=== PATIENT | female | born 1960 | race Caucasian/White ===

== ENCOUNTER 2021-08-23 15:05 | Emergency (ER) | payer BC ==
[2021-08-23 15:28] VITALS: RESP 20
[2021-08-23] MEDS ORDERED: IBUPROFEN 600 MG TAB PO STA (15:53)
[2021-08-23] MEDS ORDERED: ACETAMINOPHEN TAB 500 MG TAB PO STA (15:53)
[2021-08-23] MEDS ORDERED: DEXAMETHASONE SOD PHOSPHATE 10 MG/ML 1 ML VIAL IV STA (15:53)
[2021-08-23] MEDS ORDERED: SODIUM CHLORIDE 0.9% 1,000 ML IV ONE (16:06)
--- NOTE | 2021-08-23 16:11 | ED ---
General Adult HPI - General Chief complaint: Upper Respiratory Infection Stated complaint: covid+/weak/cough/vomiting Time Seen by Provider: 08/23/21 15:25 Source: patient, RN notes reviewed, old records reviewed Mode of arrival: ambulatory Limitations: no limitations - History of Present Illness Initial comments: This is a 61-year-old female presents emergency room from complaining of not feeling well feeling fatigued from COVID. Patient states she's had coded for over 2 weeks. Patient states she was diagnosed on August 15 but she had symptoms a week before that. Patient states she still cough and occasionally has a fever. Patient denies any loss of taste but does states she has loss of smell. Patient states she's only short of breath when she is coughing otherwise she is not short of breath per patient denies chest pain or palpitations. Patient's biggest complaint is being nauseated and unable to eat and being extremely fatigued. Patient denies any abdominal pain. Patient denies any back pain. Patient denies dysuria hematuria urinary frequency. - Related Data Home Medications Medication Instructions Recorded Confirmed Atorvastatin [Lipitor] 20 mg PO DAILY 08/23/21 08/23/21 Dapagliflozin Propanediol [Farxiga] 5 mg PO DAILY 08/23/21 08/23/21 Ergocalciferol (Vitamin D2) 1,250 mcg PO MO 08/23/21 08/23/21 [Drisdol (50,000 Iu)] Levothyroxine Sodium [Synthroid] 75 mcg PO DAILY 08/23/21 08/23/21 Ozempic 2mg/1.5ml 0.5 mg INJ WE 08/23/21 08/23/21 glipiZIDE [Glucotrol] 20 mg PO DAILY 08/23/21 08/23/21 metFORMIN HCL [Glucophage] 1,000 mg PO BID 08/23/21 08/23/21 Previous Rx's Medication Instructions Recorded Albuterol Inhaler [Ventolin Hfa 2 puff INHALATION RT-QID #18 gm 08/23/21 Inhaler] Azithromycin [Zithromax Tri-Arnaldo] 500 mg PO DAILY #3 tab 08/23/21 Dexamethasone [Decadron] 6 mg PO DAILY #7 tablet 08/23/21 Allergies Allergy/AdvReac Type Severity Reaction Status Date / Time diazepam [From Valium] AdvReac Vomiting Verified 08/23/21 15:28 Review of Systems ROS Statement: Those systems with pertinent positive or pertinent negative responses have been documented in the HPI. ROS Other: All systems not noted in ROS Statement are negative. Past Medical History Past Medical History: Diabetes Mellitus, Thyroid Disorder Additional Past Medical History / Comment(s): hypothyroid History of Any Multi-Drug Resistant Organisms: None Reported Past Surgical History: Appendectomy, Section, Tonsillectomy Past Psychological History: No Psychological Hx Reported Smoking Status: Never smoker Past Alcohol Use History: None Reported Past Drug Use History: None Reported General Exam - General Exam Comments Initial Comments: GENERAL: Patient is well-developed and well-nourished. Patient is nontoxic and well- hydrated and is in mild distress. Patient is oxygenating 93% on room air ENT: Neck is soft and supple. No significant lymphadenopathy is noted. Oropharynx is clear. Moist mucous membranes. Neck has full range of motion without eliciting any pain. EYES: The sclera were anicteric and conjunctiva were pink and moist. Extraocular movements were intact and pupils were equal round and reactive to light. Eyelids were unremarkable. PULMONARY: Unlabored respirations. Good breath sounds bilaterally. Slight crackles in both bases CARDIOVASCULAR: There is a regular rate and rhythm without any murmurs gallops or rubs. ABDOMEN: Soft and nontender with normal bowel sounds. SKIN: Skin is clear with no lesions or rashes and otherwise unremarkable. NEUROLOGIC: Patient is alert and oriented x3. Cranial nerves II through XII are grossly intact. Motor and sensory are also intact. Normal speech, volume and content. Symmetrical smile. MUSCULOSKELETAL: Normal extremities with adequate strength and full range of motion. LYMPHATICS: No significant lymphadenopathy is noted PSYCHIATRIC: Normal psychiatric evaluation. Limitations: no limitations Course Vital Signs 08/23/21 08/23/21 15:22 16:00 Temperature 99.8 F H 101.2 F H Pulse Rate 88 Respiratory 20 Rate Blood Pressure 123/67 O2 Sat by Pulse 93 L Oximetry Medical Decision Making - Medical Decision Making EKG shows normal sinus rhythm at 85 bpm SD interval 238 QRS is 80 QT interval 372 QTC is 442. Patient's EKG shows no ST segment elevation or depression Chest x-ray shows bilateral infiltrates consistent COVID. - Lab Data Result diagrams: 08/23/21 16:08 08/23/21 16:08 Lab Results 08/23/21 08/23/21 Range/Units 16:08 16:08 WBC 5.2 (3.8-10.6) k/uL RBC 4.82 (3.80-5.40) m/uL Hgb 14.2 (11.4-16.0) gm/dL Hct 43.2 (34.0-46.0) % MCV 89.6 (80.0-100.0) fL MCH 29.4 (25.0-35.0) pg MCHC 32.8 (31.0-37.0) g/dL RDW 13.6 (11.5-15.5) % Plt Count 125 L (150-450) k/uL MPV 9.0 Neutrophils % 78 % Lymphocytes % 16 % Monocytes % 4 % Eosinophils % 1 % Basophils % 1 % Neutrophils # 4.1 (1.3-7.7) k/uL Lymphocytes # 0.8 L (1.0-4.8) k/uL Monocytes # 0.2 (0-1.0) k/uL Eosinophils # 0.0 (0-0.7) k/uL Basophils # 0.0 (0-0.2) k/uL Sodium 138 (137-145) mmol/L Potassium 3.7 (3.5-5.1) mmol/L Chloride 105 (98-107) mmol/L Carbon Dioxide 22 (22-30) mmol/L Anion Gap 11 mmol/L BUN 20 H (7-17) mg/dL Creatinine 0.69 (0.52-1.04) mg/dL Est GFR (CKD-EPI)AfAm >90 (>60 ml/min/1.73 sqM) Est GFR (CKD-EPI)NonAf >90 (>60 ml/min/1.73 sqM) Glucose 207 H (74-99) mg/dL Calcium 9.2 (8.4-10.2) mg/dL Total Bilirubin 0.6 (0.2-1.3) mg/dL AST 28 (14-36) U/L ALT 18 (4-34) U/L Alkaline Phosphatase 62 (38-126) U/L Total Protein 6.9 (6.3-8.2) g/dL Albumin 3.6 (3.5-5.0) g/dL Disposition Clinical Impression: Pneumonia due to COVID-19 virus Disposition: HOME SELF-CARE Instructions (If sedation given, give patient instructions): Coronavirus Diseas e 2019 (COVID-19) Prescriptions: Dexamethasone [Decadron] 6 mg PO DAILY #7 tablet Albuterol Inhaler [Ventolin Hfa Inhaler] 2 puff INHALATION RT-QID #18 gm Azithromycin [Zithromax Tri-Arnaldo] 500 mg PO DAILY #3 tab Is patient prescribed a controlled substance at d/c from ED?: No Referrals: Nick Garcia MD [Primary Care Provider] - 1-2 days Time of Disposition: 17:04
[2021-08-23 16:12] LABS: Basophils % (A) 1 %; Eosinophils % (A) 1 %; HCT 43.2 % (34.0-46.0); HGB 14.2 gm/dL (11.4-16.0); Lymphocytes # (A) 0.8 k/uL (1.0-4.8); Lymphocytes % (A) 16 %; MCH 29.4 pg (25.0-35.0); MCHC 32.8 g/dL (31.0-37.0); MCV 89.6 fL (80.0-100.0); Monocytes # (A) 0.2 k/uL (0-1.0); Monocytes % (A) 4 %; Neutrophils # (A) 4.1 k/uL (1.3-7.7); Neutrophils % (A) 78 %; Platelet Count 125 k/uL (150-450); RBC 4.82 m/uL (3.80-5.40); RDW 13.6 % (11.5-15.5); WBC 5.2 k/uL (3.8-10.6)
[2021-08-23 16:22] LABS: ALT 18 U/L (4-34); AST 28 U/L (14-36); African American GFR (CKD) >90 (>60 ml/min/1.73 sqM); Albumin 3.6 g/dL (3.5-5.0); Alkaline Phosphatase 62 U/L (38-126); Anion Gap 11 mmol/L; Blood Urea Nitrogen 20 mg/dL (7-17); Calcium 9.2 mg/dL (8.4-10.2); Carbon Dioxide 22 mmol/L (22-30); Chloride 105 mmol/L (98-107); Glucose 207 mg/dL (74-99); Non-African American GFR(CKD) >90 (>60 ml/min/1.73 sqM); Potassium 3.7 mmol/L (3.5-5.1); Sodium 138 mmol/L (137-145); Total Bilirubin 0.6 mg/dL (0.2-1.3); Total Protein 6.9 g/dL (6.3-8.2)
--- NOTE | 2021-08-23 16:41 | XR ---
EXAMINATION TYPE: XR chest 2V DATE OF EXAM: 08/23/2021 COMPARISON: NONE HISTORY: Difficulty breathing TECHNIQUE: Frontal and lateral views of the chest are obtained. FINDINGS: Patchy peripheral areas of increased density present predominantly in the left lung. Cardi ac mediastinal silhouette within normal limits accounting for rotation. There is no evident pneumotho rax or pleural effusion. Thoracic spondylosis is noted. IMPRESSION: Correlate for pneumonia.
[2021-08-23] MEDS ORDERED: cefTRIAXone IN SWFI 1,000 MG/10 ML SYRINGE IVP STA (16:47)
[2021-08-23 16:53] VITALS: TEMP 101.2
[2021-08-23 16:58] VITALS: BP 109/75; PULSE 78
== END 2021-08-23 17:28 | disposition home or self-care (01) ==
LOC: EC 15:05
DX: U07.1 COVID-19 (principal); J12.82 Pneumonia due to coronavirus disease 2019; E11.9 Type 2 diabetes mellitus without complications; E03.9 Hypothyroidism, unspecified; Z79.84 Long term (current) use of oral hypoglycemic drugs; Z79.890 Hormone replacement therapy; Z79.51 Long term (current) use of inhaled steroids; Z79.899 Other long term (current) drug therapy
CPT/HCPCS: 99285 ×2; 96374 ×2; 96375 ×2; 96361 ×2; 36415; 93005; 80053; 85025; 71046; J1100; J0696

== ENCOUNTER 2024-01-15 23:14 | Emergency (ER) | payer OTHER, MEDICARE ==
[2024-01-15 23:38] VITALS: BP 133/78; PULSE 77; RESP 18; TEMP 98.3
--- NOTE | 2024-01-16 00:10 | XR ---
EXAMINATION TYPE: XR knee complete LT DATE OF EXAM: 01/16/2024 CLINICAL HISTORY: Falling injury with pain TECHNIQUE: Three views of the left knee are obtained. COMPARISON: None. FINDINGS: There is no acute fracture/dislocation evident in left knee. Mild to moderate tricompartme nt joint space loss and mild spurring. Meniscal calcification laterally is seen suggesting underlying chondrocalcinosis. Overlying blanket or clothing material is present. IMPRESSION: There is no acute fracture or dislocation in the left knee.
--- NOTE | 2024-01-16 00:46 | ED ---
General Adult HPI - General Chief complaint: Extremity Injury, Lower Stated complaint: [facility] injury, fall, knee injury Time Seen by Provider: 01/15/24 23:48 Source: patient Mode of arrival: wheelchair Limitations: no limitations - History of Present Illness Initial comments: 63-year-old female presenting to the ED with a chief complaint of right knee pain. Patient states that she excellently stepped in a puddle earlier today causing her to slip in the process states that she twisted her left knee and landed onto her buttocks/back. Denies any injury to her buttocks/back at this time however reports some left knee pain. Patient not on blood thinners. Denies head injury. No other injuries at this time. No other complaints. - Related Data Home Medications Medication Instructions Recorded Confirmed Atorvastatin [Lipitor] 20 mg PO DAILY 08/23/21 08/23/21 Dapagliflozin Propanediol [Farxiga] 5 mg PO DAILY 08/23/21 08/23/21 Ergocalciferol (Vitamin D2) 1,250 mcg PO MO 08/23/21 08/23/21 [Drisdol (50,000 Iu)] Levothyroxine Sodium [Synthroid] 75 mcg PO DAILY 08/23/21 08/23/21 Ozempic 2mg/1.5ml 0.5 mg INJ WE 08/23/21 08/23/21 glipiZIDE [Glucotrol] 20 mg PO DAILY 08/23/21 08/23/21 metFORMIN HCL [Glucophage] 1,000 mg PO BID 08/23/21 08/23/21 Previous Rx's Medication Instructions Recorded Albuterol Inhaler [Ventolin Hfa 2 puff INHALATION RT-QID #18 gm 08/23/21 Inhaler] Azithromycin [Zithromax Tri-Arnaldo] 500 mg PO DAILY #3 tab 08/23/21 dexAMETHasone [Decadron] 6 mg PO DAILY #7 tablet 08/23/21 Allergies Allergy/AdvReac Type Severity Reaction Status Date / Time diazepam [From Valium] AdvReac Vomiting Verified 01/15/24 23:24 Review of Systems ROS Statement: Those systems with pertinent positive or pertinent negative responses have been documented in the HPI. ROS Other: All systems not noted in ROS Statement are negative. Past Medical History Past Medical History: Diabetes Mellitus, Thyroid Disorder Additional Past Medical History / Comment(s): hypothyroid History of Any Multi-Drug Resistant Organisms: None Reported Past Surgical History: Appendectomy, Section, Tonsillectomy Past Psychological History: No Psychological Hx Reported Smoking Status: Never smoker Past Alcohol Use History: None Reported Past Drug Use History: None Reported General Exam Limitations: no limitations General appearance: alert, in no apparent distress Eye exam: Present: normal appearance Neck exam: Present: normal inspection Respiratory exam: Present: normal lung sounds bilaterally Cardiovascular Exam: Present: regular rate, normal rhythm GI/Abdominal exam: Present: soft Extremities exam: Present: other (Full passive range of motion of the left knee. Strength and sensation distal intact. DP/PT pulses palpable.) Back exam: Present: other (No midline spinal tenderness to palpation.) Neurological exam: Present: alert, oriented X3 Skin exam: Present: warm, dry Course Vital Signs 01/15/24 23:22 Temperature 98.3 F Pulse Rate 77 Respiratory 18 Rate Blood Pressure 133/78 O2 Sat by Pulse 97 Oximetry Medical Decision Making - Medical Decision Making Was pt. sent in by a medical professional or institution ([facility], IN[employer], urgent care, hospital, or group home...) When possible be specific @ -No Did you speak to anyone other than the patient for history (EMS, parent, family, police, friend...)? What history was obtained from this source @ -No Did you review nursing and triage notes (agree or disagree)? Why? @ -I reviewed and agree with nursing and triage notes Were old charts reviewed (outside hosp., previous admission, EMS record, old EKG, old radiological studies, urgent care reports/EKG's, group home records)? Report findings @ -No old charts were reviewed Differential Diagnosis (chest pain, altered mental status, abdominal pain women, abdominal pain men, vaginal bleeding, weakness, fever, dyspnea, syncope, headache, dizziness, GI bleed, back pain, seizure, CVA, palpatations, mental health, musculoskeletal)? @ -Differential Musculoskeletal Muscular strain, contusion, ligament sprain, fracture, arthritis, septic arthritis, bursitis, cellulitis, muscle spasm, nerve compression, DVT, arterial occlusion, herpes zoster, electrolyte abnormality, tumor.... This is not meant to be in all inclusive list EKG interpreted by me (3pts min.). @ -As above X-rays interpreted by me (1pt min.). @ -X-ray of the knee interpreted me reveals no acute findings. CT interpreted by me (1pt min.). @ -None done U/S interpreted by me (1pt. min.). @ -None done What testing was considered but not performed or refused? (CT, X-rays, U/S, labs)? Why? @ -None What meds were considered but not given or refused? Why? @ -None Did you discuss the management of the patient with other professionals (professionals i.e. , PA, INDEPENDENT [employer]IGHT AGENT, lab, RT, psych nurse, social media content manager, oil burner, teacher, commissioned police officer, casework specialist)? Give summary @ -No Was smoking cessation discussed for >3mins.? @ -No Was critical care preformed (if so, how long)? @ -No Were there social determinants of health that impacted care today? How? (Homelessness, low income, unemployed, alcoholism, drug addiction, transportation, low edu. Level, literacy, decrease access to med. care, care home, rehab)? @ -No Was there de-escalation of care discussed even if they declined (Discuss DNR or withdrawal of care, Hospice)? DNR status @ -No What co-morbidities impacted this encounter? (DM, HTN, Smoking, COPD, CAD, Cancer, CVA, ARF, Chemo, Hep., AIDS, mental health diagnosis, sleep apnea, morbid obesity)? @ -None Was patient admitted / discharged? Hospital course, mention meds given and route, prescriptions, significant lab abnormalities, going to OR and other pertinent info. @ -Discharge 63-year-old female presenting to the ED status post mechanical fall complaining of some left knee pain. Denies any other injuries at this time. Not on thinners. Imaging of the left knee revealed no evidence of fracture or other acute finding. Patient discharged home in stable condition and advised to follow-up with [facility]. Discussed return precautions with patient who verbalized agreement. Undiagnosed new problem with uncertain prognosis? @ -No Drug Therapy requiring intensive monitoring for toxicity (Heparin, Nitro, Insulin, Cardizem)? @ -No Were any procedures done? @ -No Diagnosis/symptom? @ -Status post mechanical fall, left knee pain Acute, or Chronic, or Acute on Chronic? @ -Acute Uncomplicated (without systemic symptoms) or Complicated (systemic symptoms)? @ -Uncomplicated Side effects of treatment? @ -No Exacerbation, Progression, or Severe Exacerbation? @ -No Poses a threat to life or bodily function? How? (Chest pain, [place], [place], pneumonia, PE, COPD, DKA, ARF, appy, cholecystitis, CVA, Diverticulitis, Homicidal, Suicidal, threat to staff... and all critical care pts) @ -No Disposition Clinical Impression: Left knee pain Disposition: HOME SELF-CARE Condition: Good Instructions (If sedation given, give patient instructions): Knee Sprain (ED) Additional Instructions: Please return to the Emergency Department if symptoms worsen or any other concerns. Please follow-up with [facility]. Is patient prescribed a controlled substance at d/c from ED?: No Referrals: Nick Garcia MD [Primary Care Provider] - 1-2 days Time of Disposition: 00:49
[2024-01-16] MEDS: ACETAMINOPHEN TAB 500 MG TAB PO STA (00:47)
== END 2024-01-16 01:02 | disposition home or self-care (01) ==
LOC: EC 23:14
DX: M25.562 Pain in left knee (principal); E11.9 Type 2 diabetes mellitus without complications; E03.9 Hypothyroidism, unspecified; Z79.890 Hormone replacement therapy; Z79.84 Long term (current) use of oral hypoglycemic drugs; Z88.8 Allergy status to other drugs, medicaments and biological substances; X50.1XXA Overexertion from prolonged static or awkward postures, initial encounter
CPT/HCPCS: 99283

== ENCOUNTER 2025-01-05 20:06 | Observation (INO) | payer MEDICARE, OTHER ==
[2025-01-05 20:15] LABS: Glucose,Whole Blood 115 mg/dL (70-110)
[2025-01-05 20:48] LABS: Basophils # (A) 0.1 k/uL (0-0.2); Basophils % (A) 0 %; Eosinophils # (A) 0.2 k/uL (0-0.7); Eosinophils % (A) 2 %; HCT 43.7 % (34.0-46.0); HGB 13.6 gm/dL (11.4-16.0); Hypochromasia Slight; Lymphocytes # (A) 3.3 k/uL (1.0-4.8); Lymphocytes % (A) 28 %; MCH 28.5 pg (25.0-35.0); MCV 91.8 fL (80.0-100.0); Mean Platelet Volume 8.7; Monocytes # (A) 0.5 k/uL (0-1.0); Monocytes % (A) 5 %; Neutrophils # (A) 7.7 k/uL (1.3-7.7); Neutrophils % (A) 65 %; Platelet Count 263 k/uL (150-450); RBC 4.76 m/uL (3.80-5.40); RDW 13.3 % (11.5-15.5)
[2025-01-05 20:58] LABS: ALT 18 U/L (4-34); AST 20 U/L (14-36); African American GFR (CKD) 86 (>60 ml/min/1.73 sqM); Albumin 4.2 g/dL (3.5-5.0); Alkaline Phosphatase 82 U/L (38-126); Anion Gap 10 mmol/L; Blood Urea Nitrogen 25 mg/dL (7-17); Calcium 10.2 mg/dL (8.4-10.2); Carbon Dioxide 25 mmol/L (22-30); Chloride 106 mmol/L (98-107); Glucose 116 mg/dL (74-99); Non-African American GFR(CKD) 75 (>60 ml/min/1.73 sqM); Sodium 141 mmol/L (137-145); Total Bilirubin 0.8 mg/dL (0.2-1.3); Total Protein 7.1 g/dL (6.3-8.2)
[2025-01-05 21:13] LABS: INR 0.9 (<1.2); Prothrombin Time 10.3 sec (10.0-12.5)
--- NOTE | 2025-01-05 21:37 | XR ---
EXAMINATION TYPE: XR chest 2V DATE OF EXAM: 01/05/2025 9:32 PM COMPARISON: Chest radiographs from 08/23/2021 CLINICAL INDICATION: Female, 64 years old with history of altered mental status; [facility] TECHNIQUE: XR chest 2V Frontal and lateral views of the chest. FINDINGS: Lungs/Pleura: There is no evidence of pleural effusion, focal consolidation, or pneumothorax. Pulmonary vascularity: Unremarkable. Heart/mediastinum: Cardiomediastinal silhouette is unremarkable. Musculoskeletal: Multiple level degenerative disc disease changes seen throughout the spine. IMPRESSION: No acute cardiopulmonary disease/process. [facility], , 01/05/2025 9:34 PM
[2025-01-05 22:06] LABS: Partial Thromboplastin Time 21.7 sec (22.0-30.0)
--- NOTE | 2025-01-05 22:28 | CT ---
EXAMINATION TYPE: CT brain wo con DATE OF EXAM: 01/05/2025 10:15 PM COMPARISON: None. CLINICAL INDICATION: Female, 64 years old with history of ams, slurred speech, forgetfulness, increas ed in confusion, and dizziness. 1600 today TECHNIQUE: Brain: Axial CT images of the brain were obtained with coronal and sagittal reformats created and rev iewed. Contrast used: None. Oral contrast used: None. CT DLP: 1648.5 mGycm, Automated exposure control for dose reduction was used. FINDINGS: Brain: Extra-axial spaces: No abnormal extra-axial fluid collections. Ventricular system: Within normal limits Cerebral parenchyma: No acute intraparenchymal hemorrhage or mass effect. The bunch-white junction is well differentiated. Cerebellum: Unremarkable. Mass effect: No evidence of midline shift. Intracranial vasculature: Atherosclerotic calcifications of the intracranial vessels. Soft tissues: Normal. Calvarium/osseous structures: No depressed skull fracture. Paranasal sinuses and mastoid air cells: Mild scattered paranasal sinus disease. Visualized orbits: Orbital contents are intact. IMPRESSION: No acute intracranial process. [facility], , 01/05/2025 10:26 PM
--- NOTE | 2025-01-05 22:32 | CT ---
EXAMINATION TYPE: CT angio head neck DATE OF EXAM: 01/05/2025 10:27 PM COMPARISON: CT same day. CLINICAL INDICATION: Female, 64 years old with history of ams; PHH, slurred speech, forgetfulness, in creased in confusion, and dizziness. 1600 today TECHNIQUE: Axially acquired helical CT angiogram of the head and neck was obtained with contrast. Axi al images are supplemented with 3D reconstructions and MIP images which were post-processed at an in dependent workstation. NASCET criteria used. Contrast used:65ML mL of Isovue 370 with IV Contrast, Oral contrast used: None. CT DLP: 1648.5 mGycm, Automated exposure control for dose reduction was used. FINDINGS: CTA HEAD: No evidence of acute intracranial hemorrhage, mass effect, or midline shift. The ventricles, sulci, a nd cisterns are unremarkable. Vertebral arteries: The vertebral arteries are patent. Vertebral artery dominance: Right dominant diminutive left vertebral artery intracranial portion. Basilar artery: The basilar artery is intact. The basilar artery bifurcation is normal. Internal Carotid arteries: The cervical, petrous, cavernous and supraclinoid segments are normal. ANIYAH: Patent with no evidence of aneurysm. ACOM: Present without evidence of aneurysm. MCA: Patent with no evidence of aneurysm. BUTTON GRADER: Patent with no evidence of aneurysm. PCOM: Hypoplastic bilaterally. Dural sinuses: Patent. CTA NECK: Right Carotid System: The common carotid artery and external carotid artery are patent. The carotid bifurcation demonstrate s no evidence of hemodynamically significant stenosis. The remaining portions of the internal carotid artery demonstrate normal size without significant narrowing. Left Carotid System: The common carotid artery and external carotid artery are patent. The carotid bifurcation demonstrate s no evidence of hemodynamically significant stenosis. The remaining portions of the internal carotid artery demonstrate normal size without significant narrowing. Vertebral arteries are patent without evidence hemodynamically significant stenosis. There is a 4-vessel aortic arch. The origins of the great vessels are patent. No evidence of hemodyna mically significant stenosis. Upper thorax: IMPRESSION: No evidence of dissection of the cervical internal carotid arteries or vertebral arteries. No any evidence of significant stenosis at the carotid bifurcations. No evidence of intracranial high-grade stenosis or intracranial aneurysm. Diminutive intracranial portion of the left vertebral artery. [facility], , 01/05/2025 10:30 PM
--- NOTE | 2025-01-05 22:39 | ED ---
Neuro HPI - General Chief Complaint: Neuro Symptoms/Deficit Stated Complaint: AMS,Weakness Time Seen by Provider: 01/05/25 21:47 Source: family, RN notes reviewed, old records reviewed Mode of arrival: wheelchair Limitations: altered mental status - History of Present Illness Is the patient presenting with stroke symptoms?: No -: hour(s) Initial Comments: This is a 64 female who presents to the emergency department after altered mental status prior to arrival. Patient was at work a job that she has been doing for years and was unable to remember where things go how to do her job she became increasing confused and stressed, patient then was assessed by nurses at work and had low blood pressure, elevated heart rate and remain confused. She is a diabetic checked her normal blood sugar. Patient states she feels still feels unwell here in the ER is without headache no headache chest pain shortness breath abdominal pain no recent nausea vomiting or diarrhea no recent fevers. No recent change in medications although she does get injections for about 3 months now for arthritis Slurred speech was noted as well as confusion Location: speech, dysarthria Place: work Severity: mild Quality: weak Improves With: time Worsens With: none Context: sudden onset Associated Symptoms: confusion Treatments Prior to Arrival: none - Related Data Home Medications: Home Medications Medication Instructions Recorded Confirmed Levothyroxine Sodium [Synthroid] 75 mcg PO DAILY 08/23/21 01/06/25 metFORMIN HCL [Glucophage] 1,000 mg PO BID 08/23/21 01/06/25 Atorvastatin [Lipitor] 80 mg PO DAILY 01/06/25 01/06/25 Ezetimibe [Zetia] 10 mg PO DAILY 01/06/25 01/06/25 Naproxen [Naprosyn] 500 mg PO BID PRN 01/06/25 01/06/25 glyBURIDE [Diabeta] 20 mg PO DAILY 01/06/25 01/06/25 Previous Rx's Medication Instructions Recorded Aspirin 81 mg PO DAILY #30 tab 01/08/25 Allergies/Adverse Reactions: Allergies Allergy/AdvReac Type Severity Reaction Status Date / Time diazepam [From Valium] AdvReac Vomiting Verified 01/06/25 10:09 Review of Systems ROS Statement: Those systems with pertinent positive or pertinent negative responses have been documented in the HPI. ROS Other: All systems not noted in ROS Statement are negative. General Exam Limitations: altered mental status General appearance: alert, in no apparent distress, anxious Head exam: Present: atraumatic, normocephalic, normal inspection Eye exam: Present: normal appearance, PERRL, EOMI. Absent: scleral icterus, conjunctival injection, periorbital swelling ENT exam: Present: normal exam, mucous membranes moist Neck exam: Present: normal inspection. Absent: tenderness, meningismus, lymphadenopathy Respiratory exam: Present: normal lung sounds bilaterally. Absent: respiratory distress, wheezes, rales, rhonchi, stridor Cardiovascular Exam: Present: regular rate, normal rhythm, normal heart sounds. Absent: systolic murmur, diastolic murmur, rubs, gallop, clicks GI/Abdominal exam: Present: soft, normal bowel sounds. Absent: distended, tenderness, guarding, rebound, rigid Extremities exam: Present: normal inspection, full ROM, normal capillary refill. Absent: tenderness, pedal edema, joint swelling, calf tenderness Back exam: Present: normal inspection Neurological exam: Present: alert, oriented X3, CN II-XII intact Psychiatric exam: Present: normal affect, normal mood Skin exam: Present: warm, dry, intact, normal color. Absent: rash Stroke MDM - Lab Data Result diagrams: 01/06/25 05:41 01/06/25 05:41 Lab Results 01/05/25 01/05/25 01/05/25 Range/Units 20:14 20:33 20:33 WBC 12.0 H (3.8-10.6) k/uL RBC 4.76 (3.80-5.40) m/uL Hgb 13.6 (11.4-16.0) gm/dL Hct 43.7 (34.0-46.0) % MCV 91.8 (80.0-100.0) fL MCH 28.5 (25.0-35.0) pg MCHC 31.0 (31.0-37.0) g/dL RDW 13.3 (11.5-15.5) % Plt Count 263 (150-450) k/uL MPV 8.7 Neutrophils % 65 % Lymphocytes % 28 % Monocytes % 5 % Eosinophils % 2 % Basophils % 0 % Neutrophils # 7.7 (1.3-7.7) k/uL Lymphocytes # 3.3 (1.0-4.8) k/uL Monocytes # 0.5 (0-1.0) k/uL Eosinophils # 0.2 (0-0.7) k/uL Basophils # 0.1 (0-0.2) k/uL Hypochromasia Slight PT 10.3 (10.0-12.5) sec INR 0.9 (<1.2) APTT 21.7 L (22.0-30.0) sec Sodium (137-145) mmol/L Potassium (3.5-5.1) mmol/L Chloride (98-107) mmol/L Carbon Dioxide (22-30) mmol/L Anion Gap mmol/L BUN (7-17) mg/dL Creatinine (0.52-1.04) mg/dL Est GFR (CKD-EPI)AfAm (>60 ml/min/1.73 sqM) Est GFR (CKD-EPI)NonAf (>60 ml/min/1.73 sqM) Glucose (74-99) mg/dL POC Glucose (mg/dL) 115 H (70-110) mg/dL POC Glu Banana Handler ID Jayla Rosio Calcium (8.4-10.2) mg/dL Total Bilirubin (0.2-1.3) mg/dL AST (14-36) U/L ALT (4-34) U/L Alkaline Phosphatase (38-126) U/L Troponin I (0.000-0.034) ng/mL Total Protein (6.3-8.2) g/dL Albumin (3.5-5.0) g/dL Urine Color Urine Appearance (Clear) Urine pH (5.0-8.0) Ur Specific [place] (1.001-1.035) Urine Protein (Negative) Urine Glucose (UA) (Negative) Urine Ketones (Negative) Urine Blood (Negative) Urine Nitrite (Negative) Urine Bilirubin (Negative) Urine Urobilinogen (<2.0) mg/dL Ur Leukocyte Esterase (Negative) Urine RBC (0-5) /hpf Urine WBC (0-5) /hpf Ur Squamous Epith Cells (0-4) /hpf Urine Bacteria (None) /hpf Hyaline Casts (0-2) /lpf Urine Mucus (None) /hpf 01/05/25 01/05/25 01/05/25 Range/Units 20:33 20:33 22:51 WBC (3.8-10.6) k/uL RBC (3.80-5.40) m/uL Hgb (11.4-16.0) gm/dL Hct (34.0-46.0) % MCV (80.0-100.0) fL MCH (25.0-35.0) pg MCHC (31.0-37.0) g/dL RDW (11.5-15.5) % Plt Count (150-450) k/uL MPV Neutrophils % % Lymphocytes % % Monocytes % % Eosinophils % % Basophils % % Neutrophils # (1.3-7.7) k/uL Lymphocytes # (1.0-4.8) k/uL Monocytes # (0-1.0) k/uL Eosinophils # (0-0.7) k/uL Basophils # (0-0.2) k/uL Hypochromasia PT (10.0-12.5) sec INR (<1.2) APTT (22.0-30.0) sec Sodium 141 (137-145) mmol/L Potassium 4.0 (3.5-5.1) mmol/L Chloride 106 (98-107) mmol/L Carbon Dioxide 25 (22-30) mmol/L Anion Gap 10 mmol/L BUN 25 H (7-17) mg/dL Creatinine 0.82 (0.52-1.04) mg/dL Est GFR (CKD-EPI)AfAm 86 (>60 ml/min/1.73 sqM) Est GFR (CKD-EPI)NonAf 75 (>60 ml/min/1.73 sqM) Glucose 116 H (74-99) mg/dL POC Glucose (mg/dL) (70-110) mg/dL POC Glu Banana Handler ID Calcium 10.2 (8.4-10.2) mg/dL Total Bilirubin 0.8 (0.2-1.3) mg/dL AST 20 (14-36) U/L ALT 18 (4-34) U/L Alkaline Phosphatase 82 (38-126) U/L Troponin I <0.012 (0.000-0.034) ng/mL Total Protein 7.1 (6.3-8.2) g/dL Albumin 4.2 (3.5-5.0) g/dL Urine Color Yellow Urine Appearance Clear (Clear) Urine pH 5.5 (5.0-8.0) Ur Specific [place] 1.048 H (1.001-1.035) Urine Protein Trace H (Negative) Urine Glucose (UA) Negative (Negative) Urine Ketones Negative (Negative) Urine Blood Negative (Negative) Urine Nitrite Negative (Negative) Urine Bilirubin Negative (Negative) Urine Urobilinogen <2.0 (<2.0) mg/dL Ur Leukocyte Esterase Moderate H (Negative) Urine RBC 1 (0-5) /hpf Urine WBC 6 H (0-5) /hpf Ur Squamous Epith Cells 1 (0-4) /hpf Urine Bacteria Rare H (None) /hpf Hyaline Casts 53 H (0-2) /lpf Urine Mucus Rare H (None) /hpf - NIH Stroke Scale 1a. Level of Consciousness: (0) alert 1b. LOC Questions: (0) answers correctly 1c. LOC Commands: (0) performs tasks correctly 2. Best Gaze: (0) normal 3. Visual: (0) no visual loss 4. Facial Palsy: (0) normal symmetrical movement 5a. Motor Arm Left: (0) no drift 5b. Motor Arm Right: (0) no drift 6a. Motor Leg Left: (0) no drift 6b. Motor Leg Right: (0) no drift 7. Limb Ataxia: (0) absent 8. Sensory: (0) normal 9. Best Language: (0) no aphasia 10. Dysarthria: (0) normal 11. Extinction/Inattention: (0) no abnormality - Thrombolytic Inclusion/Exclusion Thrombolytic Inclusion Criteria: Symptom Onset < 4.5 h - Medical Decision Making 64 female with forgetfulness earlier today patient could not figure out how to do her job which is something that she has done for years. She became increasingly confused at work and they checked her blood pressure which was low her heart rate which was high, blood sugar was normal. It and sent her to the emergency department, here she has normal testing but still feels off and will admit for neurology observation - Radiology Data Radiology results: report reviewed (Chest x-ray CT brain CTA head neck negative for acute disease), image reviewed - EKG Data -: EKG Interpreted by Me (EKG is sinus 71 WA 143 QRS 89 QTc 409) Past Medical History Past Medical History: Diabetes Mellitus, Hypertension, Thyroid Disorder Additional Past Medical History / Comment(s): hypothyroid History of Any Multi-Drug Resistant Organisms: None Reported Past Surgical History: Appendectomy, Section, Tonsillectomy Past Psychological History: No Psychological Hx Reported Smoking Status: Never smoker Past Alcohol Use History: None Reported Past Drug Use History: None Reported Course Vital Signs 01/05/25 01/06/25 20:07 01:29 Temperature 97.8 F Pulse Rate 78 78 Respiratory 18 18 Rate Blood Pressure 151/75 135/78 O2 Sat by Pulse 98 95 Oximetry - Reevaluation(s) Reevaluation #1: 01/05/25 23:24 Records reviewed Reevaluation #2: 01/05/25 23:24 Patient has no focal neurological deficits on examination here in the ER Patient has no significant amnesia currently Patient is alert and oriented Reevaluation #3: 01/05/25 23:24 Patient informed of results and questions answered Patient does not feel comfortable with discharge Reevaluation #4: Was pt. sent in by a medical professional or institution (, PA, RADIATION TECHNICIAN, urgent care, hospital, or skilled nursing...) When possible be specific @ -no Did you speak to anyone other than the patient for history (EMS, parent, family, police, friend...)? What history was obtained from this source @ -no Did you review nursing and triage notes (agree or disagree)? Why? @ -agree Are old charts reviewed (outside hosp., previous admission, EMS record, old EKG, old radiological studies, urgent care reports/EKG's, skilled nursing records)? Report findings @ -yes Differential Diagnosis (chest pain, altered mental status, abdominal pain women, abdominal pain men, vaginal bleeding, weakness, fever, dyspnea, syncope, headache, dizziness, GI bleed, back pain, seizure, CVA, palpatations, mental health, musculoskeletal)? @ -prior EKG interpreted by me (3pts min.). @ -yes X-rays interpreted by me (1pt min.). @ -yes negative for acute disease CT interpreted by me (1pt min.). @ -yes negative for acute disease U/S interpreted by me (1pt. min.). @ -no What testing was considered but not performed or refused? (CT, X-rays, U/S, labs)? Why? @ -none What meds were considered but not given or refused? Why? @ -none Did you discuss the management of the patient with other professionals (professionals i.e. DrTiffanie, PA, RADIATION TECHNICIAN, lab, RT, psych nurse, home health care social worker, early childhood education coordinator, teacher, public affairs officer, family independence case manager)? Give summary @ -no Was smoking cessation discussed for >3mins.? @ -no Was critical care preformed (if so, how long)? @ -no Were there social determinants of health that impacted care today? How? (Homelessness, low income, unemployed, alcoholism, drug addiction, transportation, low edu. Level, literacy, decrease access to med. care, half-way, rehab)? @ -none Was there de-escalation of care discussed even if they declined (Discuss DNR or withdrawal of care, Hospice)? DNR status @ -no What co-morbidities impacted this encounter? (DM, HTN, Smoking, COPD, CAD, Cancer, CVA, ARF, Chemo, Hep., AIDS, mental health diagnosis, sleep apnea, morbid obesity)? @ -none Was patient admitted / discharged? Hospital course, mention meds given and route, prescriptions, significant lab abnormalities, going to OR and other pertinent info. @ - 64 female with forgetfulness earlier today patient could not figure out how to do her job which is something that she has done for years. She became in creasingly confused at work and they checked her blood pressure which was low her heart rate which was high, blood sugar was normal. It and sent her to the emergency department, here she has normal testing but still feels off and will admit for neurology observation Admitted acute confusion and hypertension Undiagnosed new problem with uncertain prognosis? @ -no Drug Therapy requiring intensive monitoring for toxicity (Heparin, Nitro, Insulin, Cardizem)? @ -no Were any procedures done? @ -no Diagnosis/symptom? @ -Acute confusion amnesia and hypertension Acute, or Chronic, or Acute on Chronic? @ -Acute Uncomplicated (without systemic symptoms) or Complicated (systemic symptoms)? @ -Complicated Side effects of treatment? @ -no Exacerbation, Progression, or Severe Exacerbation? @ -exacerbation Poses a threat to life or bodily function? How? (Chest pain, [place], IA, pneumonia, PE, COPD, DKA, ARF, appy, cholecystitis, CVA, Diverticulitis, Homicidal, Suicidal, threat to staff... and all critical care pts) @ -no Reevaluation #5: Differential Altered Mental Status: Hypoglycemia, DKA, hypercapnia, ETOH, overdose, CO poisoning, trauma, myxedema coma, HTN encephalopathy, infection, encephalitis, psychosis, intercranial hemorrhage, hepatic encephalopathy, meningitis, CVA, this is not meant to be an all-inclusive list - Consultations Consultation #1: Spoke with [facility] who agrees to admit this patient Disposition Clinical Impression: AMS (altered mental status), Amnesia Disposition: ADMITTED IP TO THIS [facility] Condition: Good Is patient prescribed a controlled substance at d/c from ED?: No Time of Disposition: 23:20
[2025-01-05 23:17] LABS: Appearance,Urine Clear (Clear); Bacteria,Urine Rare /hpf; Bilirubin,Urine Negative (Negative); Blood,Urine Negative (Negative); Color,Urine Yellow; Glucose,Urine (UA) Negative (Negative); Hyaline Casts,Urine 53 /lpf (0-2); Ketones,Urine Negative (Negative); Leukocyte Esterase,Urine Moderate (Negative); Mucus,Urine Rare /hpf; Nitrite,Urine Negative (Negative); PH, Urine 5.5 (5.0-8.0); Protein,Urine Trace (Negative); RBC,Urine 1 /hpf (0-5); Squamous Epithelial Cell,Urine 1 /hpf (0-4); Urobilinogen,Urine <2.0 mg/dL (<2.0); WBC,Urine 6 /hpf (0-5)
[2025-01-05] MEDS ORDERED: ONDANSETRON 4 MG/2 ML VIAL IVP PRN (23:22)
[2025-01-05] MEDS ORDERED: NALOXONE 0.4 MG/ML 1 ML VIAL IV PRN (23:22)
[2025-01-05 23:37] LABS: Specific Gravity,Urine 1.048 (1.001-1.035)
[2025-01-05] MEDS: SODIUM CHLORIDE 0.9% 1,000 ML IV SCH (23:38)
[2025-01-05] MEDS: SODIUM CHLORIDE 0.9% 1,000 ML IV STA ×2 (23:38)
[2025-01-05] MEDS: ASPIRIN 81 MG PO STA (23:45)
[2025-01-06 00:51] LABS: Influenza A Not Detected (Not Detectd); Influenza B Not Detected (Not Detectd); RSV Not Detected (Not Detectd)
[2025-01-06 05:52] LABS: Glucose,Whole Blood 95 mg/dL (70-110)
[2025-01-06 06:06] LABS: Basophils % (A) 1 %; Eosinophils # (A) 0.2 k/uL (0-0.7); Eosinophils % (A) 2 %; HCT 38.7 % (34.0-46.0); Hypochromasia Slight; Lymphocytes # (A) 3.4 k/uL (1.0-4.8); Lymphocytes % (A) 37 %; MCH 28.9 pg (25.0-35.0); MCHC 31.1 g/dL (31.0-37.0); MCV 92.9 fL (80.0-100.0); Mean Platelet Volume 8.7; Monocytes # (A) 0.4 k/uL (0-1.0); Monocytes % (A) 4 %; Neutrophils # (A) 5.1 k/uL (1.3-7.7); Neutrophils % (A) 55 %; Platelet Count 196 k/uL (150-450); RBC 4.16 m/uL (3.80-5.40); RDW 13.4 % (11.5-15.5); WBC 9.3 k/uL (3.8-10.6)
[2025-01-06 06:16] LABS: ALT 14 U/L (4-34); AST 17 U/L (14-36); African American GFR (CKD) >90 (>60 ml/min/1.73 sqM); Albumin 3.1 g/dL (3.5-5.0); Alkaline Phosphatase 65 U/L (38-126); Anion Gap 4 mmol/L; Blood Urea Nitrogen 18 mg/dL (7-17); Carbon Dioxide 25 mmol/L (22-30); Chloride 110 mmol/L (98-107); Glucose 98 mg/dL (74-99); Magnesium 1.3 mg/dL (1.6-2.3); Non-African American GFR(CKD) >90 (>60 ml/min/1.73 sqM); Phosphorus 4.4 mg/dL (2.5-4.5); Potassium 3.8 mmol/L (3.5-5.1); Sodium 139 mmol/L (137-145); Total Bilirubin 0.6 mg/dL (0.2-1.3); Total Protein 5.7 g/dL (6.3-8.2)
[2025-01-06] MEDS: ASPIRIN 325 MG TAB PO SCH (09:18)
[2025-01-06] MEDS ORDERED: DEXTROSE 50% SYRINGE 50 ML IVP PRN ×2 (13:16)
[2025-01-06 13:37] LABS: Glucose,Whole Blood 172 mg/dL (70-110)
--- NOTE | 2025-01-06 14:05 | P.HPIM ---
History of Present Illness 64-year-old female came in with complaints of transient episode of memory loss. Patient was confused at the time her confusion completely resolved although workup here is negative patient had a mild leukocytosis which resolved at this time but no evidence of sepsis urine is slightly abnormal but not consistent with urinary tract infection chest x-ray is negative patient is not septic at this time. There are no significant electrolyte abnormalities except for low magnesium which will be replaced. Patient was told by the nurse yesterday that she does have weakness in the left arm which is not evident at this time patient does have some neck pain and neuropathy and weakness in bilateral upper extremities in general because of cervical spondylosis/myelopathy. REVIEW OF SYSTEMS: All other systems are negative except those mentioned in the HPI PHYSICAL EXAMINATION: GENERAL: The patient is alert and oriented x3, not in any acute distress. Well developed, well nourished. HEENT: Pupils are round and equally reacting to light. EOMI. No scleral icterus. No conjunctival pallor. Normocephalic, atraumatic. No pharyngeal erythema. No thyromegaly. CARDIOVASCULAR: S1 and S2 present. No murmurs, rubs, or gallops. PULMONARY: Chest is clear to auscultation, no wheezing or crackles. ABDOMEN: Soft, nontender, nondistended, normoactive bowel sounds. No palpable organomegaly. MUSCULOSKELETAL: No joint swelling or deformity. EXTREMITIES: No cyanosis, clubbing, or pedal edema. NEUROLOGICAL: Gross neurological examination did not reveal any focal deficits except for-weakness in bilateral upper extremities SKIN: No rashes. Assessment and plan -Possible transient global amnesia only will need workup for TIA, neurology was consulted CT of the head did not show any acute stroke -Bilateral upper extremity weakness can be secondary to cervical myelopathy from cervical degenerative disc disease -Leukocytosis reactive resolved at this time no evidence of urinary tract infection Hypomagnesemia magnesium will be replaced -Type 2 diabetes mellitus resume glyburide hold off metformin and sliding scale insulin will be continued DVT prophylaxis: Early ambulation Past Medical History Past Medical History: Diabetes Mellitus, Hypertension, Thyroid Disorder Additional Past Medical History / Comment(s): hypothyroid History of Any Multi-Drug Resistant Organisms: None Reported Past Surgical History: Appendectomy, Section, Tonsillectomy Past Anesthesia/Blood Transfusion Reactions: No Reported Reaction Past Psychological History: No Psychological Hx Reported Smoking Status: Former smoker Past Alcohol Use History: None Reported Past Drug Use History: None Reported Medications and Allergies Home Medications Medication Instructions Recorded Confirmed Type Levothyroxine Sodium [Synthroid] 75 mcg PO DAILY 08/23/21 01/06/25 History metFORMIN HCL [Glucophage] 1,000 mg PO BID 08/23/21 01/06/25 History Atorvastatin [Lipitor] 80 mg PO DAILY 01/06/25 01/06/25 History Ezetimibe [Zetia] 10 mg PO DAILY 01/06/25 01/06/25 History Naproxen [Naprosyn] 500 mg PO BID PRN 01/06/25 01/06/25 History glyBURIDE [Diabeta] 20 mg PO DAILY 01/06/25 01/06/25 History Allergies Allergy/AdvReac Type Severity Reaction Status Date / Time diazepam [From Valium] AdvReac Vomiting Verified 01/06/25 10:09 Physical Exam Vitals: Vital Signs Temp Pulse Pulse Resp BP BP Pulse Ox 01/06/25 07:00 97.5 F L 63 18 161/81 97 01/06/25 02:00 97.3 F L 73 15 177/84 99 01/06/25 01:29 78 18 135/78 95 01/05/25 20:07 97.8 F 78 18 151/75 98 Intake and Output 01/05/25 01/06/25 01/06/25 22:59 06:59 14:59 Intake Total 118 Balance 118 Intake: Oral 118 Other: # Voids 2 Weight 83.915 kg 83.915 kg Results CBC & Chem 7: 01/06/25 05:41 01/06/25 05:41 Labs: Abnormal Lab Results - Last 24 Hours (Table) 01/05/25 01/05/25 01/05/25 Range/Units 20:14 20:33 20:33 WBC 12.0 H (3.8-10.6) k/uL APTT 21.7 L (22.0-30.0) sec Chloride (98-107) mmol/L BUN (7-17) mg/dL Glucose (74-99) mg/dL POC Glucose (mg/dL) 115 H (70-110) mg/dL Magnesium (1.6-2.3) mg/dL Total Protein (6.3-8.2) g/dL Albumin (3.5-5.0) g/dL Ur Specific [place] (1.001-1.035) Urine Protein (Negative) Ur Leukocyte Esterase (Negative) Urine WBC (0-5) /hpf Urine Bacteria (None) /hpf Hyaline Casts (0-2) /lpf Urine Mucus (None) /hpf 01/05/25 01/05/25 01/06/25 Range/Units 20:33 22:51 05:41 WBC (3.8-10.6) k/uL APTT (22.0-30.0) sec Chloride 110 H (98-107) mmol/L BUN 25 H 18 H (7-17) mg/dL Glucose 116 H (74-99) mg/dL POC Glucose (mg/dL) (70-110) mg/dL Magnesium 1.3 L (1.6-2.3) mg/dL Total Protein 5.7 L (6.3-8.2) g/dL Albumin 3.1 L (3.5-5.0) g/dL Ur Specific [place] 1.048 H (1.001-1.035) Urine Protein Trace H (Negative) Ur Leukocyte Esterase Moderate H (Negative) Urine WBC 6 H (0-5) /hpf Urine Bacteria Rare H (None) /hpf Hyaline Casts 53 H (0-2) /lpf Urine Mucus Rare H (None) /hpf 01/06/25 Range/Units 13:35 WBC (3.8-10.6) k/uL APTT (22.0-30.0) sec Chloride (98-107) mmol/L BUN (7-17) mg/dL Glucose (74-99) mg/dL POC Glucose (mg/dL) 172 H (70-110) mg/dL Magnesium (1.6-2.3) mg/dL Total Protein (6.3-8.2) g/dL Albumin (3.5-5.0) g/dL Ur Specific [place] (1.001-1.035) Urine Protein (Negative) Ur Leukocyte Esterase (Negative) Urine WBC (0-5) /hpf Urine Bacteria (None) /hpf Hyaline Casts (0-2) /lpf Urine Mucus (None) /hpf
[2025-01-06] MEDS: ATORVASTATIN 80 MG TAB PO SCH (14:15)
[2025-01-06] MEDS: MAGNESIUM SULFATE-D5W PMX 1 GM in DEXTROSE/WATER 1 100ML.BAG IVPB SCH (14:15)
[2025-01-06] MEDS: EZETIMIBE 10 MG TAB PO SCH (14:15)
[2025-01-06] MEDS ORDERED: INSULIN LISPRO (HumaLOG) 100 UNIT/ML 10 mL VL SQ SCH (17:30)
[2025-01-06 17:32] LABS: Glucose,Whole Blood 316 mg/dL (70-110)
[2025-01-06] MEDS: INSULIN LISPRO (HumaLOG) 100 UNIT/ML 10 mL VL SQ SCH (17:34)
[2025-01-06 20:15] LABS: Glucose,Whole Blood 274 mg/dL (70-110)
[2025-01-07 06:17] LABS: Glucose,Whole Blood 141 mg/dL (70-110)
[2025-01-07] MEDS: LEVOTHYROXINE 75 MCG TAB PO SCH (06:29)
--- NOTE | 2025-01-07 08:50 | P.CNNES ---
History of Present Illness Consult date: 01/06/25 Requesting physician: Tawanda Sanchez Reason for Consult: Altered mental status History of Present Illness: Patient is a 64-year-old right-handed female with history of diabetes, hypertension, rheumatoid arthritis, on medications, came to the hospital yesterday at 8:06 PM for altered mental status and memory loss. 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 She has been working at this facility for long time and knows her job and the people at work very well. Patient states that yesterday she woke up at 11 AM and was doing well. She went to work at 2 PM, as she works from 2 to 10 PM. 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 She also started feeling lightheadedness, dizziness but no spinning or vertigo. Patient still remembers most of the details that happened during this episode of confusion. She remembers that she could not remember the person's that she knew very well. She has to go to the board to find out where the people were sitting whom she knows very well. . Patient's coworkers at the facility sent a handwritten note, which mentioned that they noticed that she was tachycardic between 10 2-1 22, short of breath, very confused, hypotensive with blood pressure 90/40 at 6:30 PM. Blood glucose was 95 at 6:40 PM. She had slow speech, delayed and was forgetful. She was also feeling dizziness and lightheadedness. Patient states that she came to the hospital, it was still difficult to remember details. She was feeling sluggish, not sure of herself. Some details she could not remember although most of it she did. She has not returned back to baseline yet. Patient denies any numbness of her extremities more than usual, any visual di sturbance, slurred speech, facial droop or diplopia. Patient states that she suffered from a fall 6 years ago at her niece house in which she hit her head. She had vertigo next morning which lasted for a few hours. It would occur off and on, until she saw the rolloff driver, who gives her a shot in the neck and the symptoms went away. Patient states that 1 month ago she had another episode of vertigo. Patient states that whenever she extends her head backwards, she gets tingling and pain in the back of the neck, shoulders and arms get tingling.. Vital signs on arrival blood pressure 151/75, pulse rate 78 temperature 97.8. Blood test shows normal CBC, PT PTT, normal CMP, troponin. UA shows moderate leukocyte Estrace and 6 WBCs and rare bacteria. Influenza, RSV and coronavirus PCR negative. CT head showed no acute intracranial process. I personally reviewed CT head, agree with the findings. Visualized paranasal sinuses are clear. There is slightly impacted cerumen on the left. EKG showed sinus rhythm, chest x-ray showed no acute cardiopulmonary process. Home medications include glimepiride, Lipitor 80 mg, Zetia 10 mg, levothyroxine and metformin. Patient does not take any antiplatelet medication at home. Patient has been receiving infusion of Orencia, which is a medication for rheumatoid arthritis for 3 months. She was receiving it every 2 weeks for 2 months and now in the last 1 month, it has been decreased to once a month. Her next dose is due on 01/27/2025 and a follow-up with her rolloff driver on 02/10/2025. She also has been diagnosed with CTS. She has significant arthritis of the knees, feet hertz. Patient says that since she received infusion, she is getting stronger, but still has numbness tingling in both fingers and hands. Patient has history of diabetes for 8-9 years, hypertension. She does not smoke. Review of Systems All pertinent positive and negative review of systems patient is PI, otherwise unremarkable. Past Medical History Past Medical History: Diabetes Mellitus, Hypertension, Thyroid Disorder Additional Past Medical History / Comment(s): hypothyroid History of Any Multi-Drug Resistant Organisms: None Reported Past Surgical History: Appendectomy, Section, Tonsillectomy Past Anesthesia/Blood Transfusion Reactions: No Reported Reaction Past Psychological History: No Psychological Hx Reported Smoking Status: Former smoker Past Alcohol Use History: None Reported Past Drug Use History: None Reported Medications and Allergies Home Medications Medication Instructions Recorded Confirmed Type Levothyroxine Sodium [Synthroid] 75 mcg PO DAILY 08/23/21 01/06/25 History metFORMIN HCL [Glucophage] 1,000 mg PO BID 08/23/21 01/06/25 History Atorvastatin [Lipitor] 80 mg PO DAILY 01/06/25 01/06/25 History Ezetimibe [Zetia] 10 mg PO DAILY 01/06/25 01/06/25 History Naproxen [Naprosyn] 500 mg PO BID PRN 01/06/25 01/06/25 History glyBURIDE [Diabeta] 20 mg PO DAILY 01/06/25 01/06/25 History Allergies Allergy/AdvReac Type Severity Reaction Status Date / Time diazepam [From Valium] AdvReac Vomiting Verified 01/06/25 10:09 Physical Examination - Vital Signs Vital Signs: Vital Signs Temp Pulse Pulse Resp BP BP Pulse Ox 01/06/25 07:00 97.5 F L 63 18 161/81 97 01/06/25 02:00 97.3 F L 73 15 177/84 99 01/06/25 01:29 78 18 135/78 95 01/05/25 20:07 97.8 F 78 18 151/75 98 Intake and Output 01/05/25 01/06/25 01/06/25 22:59 06:59 14:59 Intake Total 118 Balance 118 Intake: Oral 118 Other: # Voids 2 Weight 83.915 kg 83.915 kg Patient is an elderly female, in no acute distress. Patient is alert awake oriented to time place and person. Speech and language functions are normal. Patient can name and repeat very well. No aphasia or dysarthria. Attention, concentration and fund of knowledge is adequate. On cranial nerve examination, pupils are equal, round and reacting to light, visual gray are full on confrontation, with no neglect on double simultaneous stimulation. Extraocular muscles are intact with no nystagmus. Face is symmetric, tongue protrudes to the midline. Palatal elevation and sensation normal, hearing and shoulder shrug normal, facial sensation normal. On muscle strength testing, there is no pronator drift. Patient examination was limited because of her significant arthritis, and arthralgias. Patient was mostly 4-4+ all over with guarding due to pain. Her ankle dorsiflexion are 5, toe extension 5, hip flexion 4+ bilaterally. Deep tendon reflexes are symmetric 1+ at the biceps, 1+ brachioradialis, 1+ at the knees and plantars downgoing bilaterally. Sensory to touch is equal with no neglect on double simultaneous stimulation. She has decreased sensation for touch in the hands bilaterally. Cerebellar function showed no ataxia for [id number] testing. No dysdiadochokinesia. No ataxia for [id number] testing on either side. Tone and bulk of muscles normal. Gait deferred.. On general examination, there is no carotid bruit or murmur, S1-S2 audible. Chest is clear on consultation. Abdomen is soft nontender. No organomegaly, bowel sounds present. Peripheral pulses are present. No peripheral edema. Results - Laboratory Findings CBC and BMP: 01/06/25 05:41 01/06/25 05:41 Abnormal Lab Findings: Abnormal Labs 01/05/25 01/05/25 01/05/25 20:14 20:33 20:33 WBC 12.0 H APTT 21.7 L Chloride BUN Glucose POC Glucose (mg/dL) 115 H Magnesium Total Protein Albumin Ur Specific [place] Urine Protein Ur Leukocyte Esterase Urine WBC Urine Bacteria Hyaline Casts Urine Mucus 01/05/25 01/05/25 01/06/25 20:33 22:51 05:41 WBC APTT Chloride 110 H BUN 25 H 18 H Glucose 116 H POC Glucose (mg/dL) Magnesium 1.3 L Total Protein 5.7 L Albumin 3.1 L Ur Specific [place] 1.048 H Urine Protein Trace H Ur Leukocyte Esterase Moderate H Urine WBC 6 H Urine Bacteria Rare H Hyaline Casts 53 H Urine Mucus Rare H Assessment and Plan Assessment: * 64-year-old female presented with sudden onset of confusion, some amnesia, dizziness, lightheadedness and gait imbalance, that started 4 PM yesterday. Symptoms have mostly resolved, but still feels slightly lightheaded, and has to focus to remember. Examination is relatively nonfocal. Rule out CVA. TGA also in the differential, but patient remembers quite much details from during that event. * Lhermitte's symptoms with neck extension, rule out cervical spinal stenosis * Rheumatoid arthritis, on Orencia * Diabetes * Hypertension * Hyperlipidemia * Hypothyroidism Plan: * MRI brain rule out CVA * MRI of the cervical spine, rule out spinal stenosis/rheumatoid involvement of the C-spine. * EEG rule out epileptiform activity. * Hemoglobin A1c, lipid panel, B12, folate * Patient has been started on aspirin 325 mg daily. Patient was not on any antiplatelet medication at home. * DVT prophylaxis: Heparin 5000 subcu every 12 hours. * PT OT evaluate gait. * Neurology will follow. Thank you for the consult. Time with Patient: Greater than 30
[2025-01-07] MEDS: glipiZIDE 5 MG TAB PO SCH (09:14)
[2025-01-07 13:22] VITALS: BMI 31.7
[2025-01-07 13:22] LABS: Glucose,Whole Blood 146 mg/dL (70-110)
--- NOTE | 2025-01-07 13:43 | MR ---
EXAMINATION TYPE: MR brain/cspine wo DATE OF EXAM: 01/07/2025 1:17 PM COMPARISON: 01/05/2025. CLINICAL INDICATION: Female, 64 years old with history of Stroke/TIA. neck pain, paresthesias; PHH, P aresthesia, neck pain, stroke/TIA TECHNIQUE: Multi planar, multi sequence imaging was performed through the brain including: T1, T2, Inversion rec overy, Diffusion weighted imaging, and gradient echo imaging. No gadolinium was given. Multi planar, multi sequence imaging was performed utilizing: T1-weighted, T2-weighted, and turbo inv ersion recovery imaging of the cervical spine. IV Contrast: mL none FINDINGS: Mild cerebral atrophy with proportional dilation of ventricular system. Scattered foci of high T2 s ignal in the periventricular matter. Midline structures show no abnormality. Diffusion-weighted imagi ng shows no evidence of restricted diffusion. The susceptibility weighted images do not reveal any ev idence for micro-hemorrhage. The bone marrow signal is within normal limits. Paranasal sinuses and mastoid air cells: Moderate scattered paranasal sinus disease. Visualized orbits: Orbital contents are intact. Alignment: The cervical vertebral bodies have preserved heights. Grade 1 anterolisthesis of C4 on C5. Bones: Bone signal is within normal limits. No abnormal bone marrow edema on inversion recovery seque nces. Cord: Abnormal cord signal at the level of C4-C5. The spinal cord is unremarkable with regards to the ir signal intensity and morphology. Discs: Intervertebral disc signal is maintained. C2-C3: No significant disc pathology. The spinal canal is patent. No neural foraminal stenosis. C3-C4: A disc osteophyte complex is present with mild spinal canal stenosis. Bilateral facet and unc overtebral joint arthropathy are present with mild bilateral neural foraminal stenosis. C4-C5: A disc osteophyte complex is present with moderate spinal canal stenosis. Bilateral facet and uncovertebral joint arthropathy are present with moderate left and mild right neural foraminal steno sis. C5-C6: A disc osteophyte complex is present with moderate to severe spinal canal stenosis. Bilateral facet and uncovertebral joint arthropathy are present with moderate bilateral neural foraminal steno sis. C6-C7: A disc osteophyte complex is present with moderate to severe spinal canal stenosis. Bilateral facet and uncovertebral joint arthropathy are present with mild bilateral neural foraminal stenosis. C7-T1: No significant disc pathology. The spinal canal is patent. No neural foraminal stenosis. Other: None. IMPRESSION: 1. No evidence for disc herniation or significant spinal canal stenosis. 2. Abnormal cord signal at the level of C4-C5 prominent in the right with moderate spinal canal sten osis. Etiology unclear given only moderate spinal canal stenosis. Correlate for demyelination. Correl ate for history of trauma. 3. Grade 1 anterolisthesis of C4 on C5. 4. Multilevel disc degeneration with associated osteoarthritic changes moderate to severe spinal can al stenosis at C5-C6 at C6-C7. 5. No evidence of intracranial mass or acute/subacute infarct. 6. Nonspecific white matter changes, likely secondary to small vessel ischemic disease. [facility], , 01/07/2025 1:40 PM
[2025-01-07 17:39] LABS: Glucose,Whole Blood 154 mg/dL (70-110)
[2025-01-07 19:26] LABS: Glucose,Whole Blood 192 mg/dL (70-110)
--- NOTE | 2025-01-07 20:50 | EEG ---
ELECTROENCEPHALOGRAM REPORT PREAMBLE: This is a 64-year-old female with episode of confusion, some amnesia and dizziness, rule out TIA versus seizure. EEG FINDINGS: This is a 21-channel digital EEG recorded with video component, utilizing 10/20 international system with referential and bipolar montages. Background consists of well developed, well regulated moderate voltage activity in 9 to 10 hertz alpha. Background is posterior dominant and reactive to eye opening and closing. Photic driving response was seen with several flash frequencies. Some drowsiness was seen with appearance of bilaterally symmetric theta frequency rhythm. Deeper stages of sleep were not seen. No focal or generalized epileptiform activity was seen. IMPRESSION: This is a normal awake and drowsy EEG. No focal, lateralized, or epileptiform activity was seen. MMODL / IJN: [id number] /
--- NOTE | 2025-01-07 21:02 | P.PN ---
Subjective Progress Note Date: 01/07/25 64-year-old female came in with complaints of transient episode of memory loss. Patient was confused at the time her confusion completely resolved although workup here is negative patient had a mild leukocytosis which resolved at this time but no evidence of sepsis urine is slightly abnormal but not consistent with urinary tract infection chest x-ray is negative patient is not septic at this time. There are no significant electrolyte abnormalities except for low magnesium which will be replaced. Patient was told by the nurse yesterday that she does have weakness in the left arm which is not evident at this time patient does have some neck pain and neuropathy and weakness in bilateral upper extre mities in general because of cervical spondylosis/myelopathy. 01/07/2025 Patient is evaluated today in follow up resting in bed comfortably. Still continues to report some trouble with memory and short term recall although significantly better than when she came in. We are still pending brain MRI and EEG reports. Hemoglobin A1C was 10.3. Blood glucose in the 140s. REVIEW OF SYSTEMS: CONSTITUTIONAL: No fever, no malaise, no fatigue. HEENT: No recent visual problems or hearing problems. Denied any sore throat. CARDIOVASCULAR: No chest pain, orthopnea, PND, no palpitations, no syncope. PULMONARY: No shortness of breath, no cough, no hemoptysis. GASTROINTESTINAL: No diarrhea, no nausea, no vomiting NEUROLOGICAL: No headaches, no weakness, no numbness. PHYSICAL EXAMINATION: GENERAL: The patient is alert and oriented x3, not in any acute distress. Well developed, well nourished. HEENT: Pupils are round and equally reacting to light. EOMI. No scleral icterus. No conjunctival pallor. Normocephalic, atraumatic. No pharyngeal erythema. No thyromegaly. CARDIOVASCULAR: S1 and S2 present. No murmurs, rubs, or gallops. PULMONARY: Chest is clear to auscultation, no wheezing or crackles. ABDOMEN: Soft, nontender, nondistended, normoactive bowel sounds. No palpable organomegaly. MUSCULOSKELETAL: No joint swelling or deformity. EXTREMITIES: No cyanosis, clubbing, or pedal edema. NEUROLOGICAL: Gross neurological examination did not reveal any focal deficits except for-weakness in bilateral upper extremities SKIN: No rashes. Assessment and plan -Possible transient global amnesia only will need workup for TIA, neurology was consulted CT of the head did not show any acute stroke -Bilateral upper extremity weakness can be secondary to cervical myelopathy from cervical degenerative disc disease -Leukocytosis reactive resolved at this time no evidence of urinary tract infe ction -Hypomagnesemia magnesium will be replaced -Type 2 diabetes mellitus resume glyburide hold off metformin and sliding scale insulin will be continued DVT prophylaxis: Early ambulation Patient continues on aspirin therapy and high dose statin therapy. Will need adjustment to her oral medications on discharge for improved glycemic control. Pending MRI and EEG reports, if they are back and negative patient can discharge later on this afternoon. Neurology to follow up. The impression and plan of care has been dictated by Talia Hugo Nurse Practitioner as directed. Dr. Mandie MD I have performed a history and physical examination and medical decision making of this patient, discussed the same with the dictator, and agree with the dictators assessment and plan as written, documented as a scribe. Based on total visit time, I have performed more than 50% of this visit. Objective - Vital Signs Vital signs: Vital Signs Temp 98.4 F 01/07/25 20:00 Pulse 74 01/07/25 20:00 Resp 18 01/07/25 20:00 BP 164/78 01/07/25 20:00 Pulse Ox 97 01/07/25 20:00 FiO2 Intake & Output 01/07/25 01/07/25 01/08/25 06:59 18:59 06:59 Intake Total 776 Balance 776 Weight 83.915 kg Intake: Oral 776 Other: # Voids 5 3 # Bowel Movements 0 - Labs CBC & Chem 7: 01/06/25 05:41 01/06/25 05:41 Labs: Abnormal Lab Results - Last 24 Hours (Table) 01/07/25 01/07/25 01/07/25 Range/Units 04:37 06:16 13:21 POC Glucose (mg/dL) 141 H 146 H (70-110) mg/dL Hemoglobin A1c 10.3 H (<=6.0) % 01/07/25 01/07/25 Range/Units 17:38 19:23 POC Glucose (mg/dL) 154 H 192 H (70-110) mg/dL Hemoglobin A1c (<=6.0) % Assessment and Plan Time with Patient: Less than 30
[2025-01-07] MEDS: ACETAMINOPHEN TAB 325 MG TAB PO PRN (21:06)
[2025-01-07] MEDS: HEPARIN SODIUM,PORCINE 5,000 UNIT/ML 1 ML VIAL SQ SCH (21:06)
[2025-01-08 03:17] VITALS: RESP 17
[2025-01-08 06:11] LABS: Glucose,Whole Blood 141 mg/dL (70-110)
--- NOTE | 2025-01-08 08:34 | P.PN ---
Subjective Progress Note Date: 01/07/25 Patient was seen for follow-up. Patient is laying in the bed. Denies any new neurological symptoms. Objective - Vital Signs Vital signs: Vital Signs Temp 97.8 F 01/07/25 07:30 Pulse 69 01/07/25 07:30 Resp 17 01/07/25 07:30 BP 150/68 01/07/25 07:30 Pulse Ox 97 01/07/25 07:30 FiO2 Intake & Output 01/06/25 01/07/25 01/07/25 18:59 06:59 18:59 Intake Total 1394 118 Balance 1394 118 Weight 83.915 kg Intake: Intake, IV Titration 1040 Amount Sodium Chloride 0.9% 1, 1040 000 ml @ 130 mls/hr IV . [id number] DAMEON Rx#:[id number] Oral 354 118 Other: # Voids 5 - Exam Examination unchanged. - Labs CBC & Chem 7: 01/06/25 05:41 01/06/25 05:41 Labs: Abnormal Lab Results - Last 24 Hours (Table) 01/06/25 01/06/25 01/07/25 Range/Units 17:31 20:14 04:37 POC Glucose (mg/dL) 316 H 274 H (70-110) mg/dL Hemoglobin A1c 10.3 H (<=6.0) % 01/07/25 01/07/25 Range/Units 06:16 13:21 POC Glucose (mg/dL) 141 H 146 H (70-110) mg/dL Hemoglobin A1c (<=6.0) % Assessment and Plan Assessment: * 64-year-old female presented with sudden onset of confusion, some amnesia, dizziness, lightheadedness and gait imbalance, that started 4 PM yesterday. Symptoms have mostly resolved, but still feels slightly lightheaded, and has to focus to remember. Examination is relatively nonfocal. Rule out CVA. TGA also in the differential, but patient remembers quite much details from during that event. * Lhermitte's symptoms with neck extension, likely due to cervical spinal stenosis * Cervical spinal stenosis, moderate to severe degree at C5-C6 and C6-C7 with abnormal cord signal at C4-C5 level. * Grade 1 anterolisthesis of C4 on C5. * Vitamin B12 deficiency * Rheumatoid arthritis, on Orencia * Diabetes * Hypertension * Hyperlipidemia * Hypothyroidism Plan: * MRI brain was normal. No evidence of intracranial mass, acute/subacute infarct. Nonspecific white matter changes, likely secondary to small vessel ischemic disease. I personally reviewed MRI, agree with the findings. No acute stroke. * MRI of the cervical spine, revealed abnormal cord signal at the level of C4-C5 prominent in the right with moderate spinal canal stenosis. Etiology unclear given only moderate spinal canal stenosis. Correlate for demyelination. Correlate for history of trauma. Grade 1 anterolisthesis of C4 on C5. Multilevel disc degeneration with associated osteoarthritic changes moderate to severe spinal canal stenosis at C5 6, at C6-C7. I personally reviewed MRI agree with the findings. * Consult orthopedic spine for spinal stenosis. * EEG was normal awake and drowsy. No focal, lateralized or epileptiform activity was seen. * Hemoglobin A1c 10.3, recommend optimize control of diabetes to target A1c < 7.0. Check lipid panel, * B12 245, folate 11.10. We will start B12 replacement. Check methylmalonic acid. * Patient has been started on aspirin 325 mg daily. Patient was not on any antiplatelet medication at home. No need for DAPT, as MRI of the brain did not show any acute stroke. * DVT prophylaxis: Heparin 5000 subcu every 12 hours. * PT OT evaluate gait.
--- NOTE | 2025-01-08 11:47 | P.CNOR ---
History of Present Illness - [facility] Consult date: 01/08/25 Requesting physician: Jarod Ellis Consult reason: other (Cervical Spinal Stenosis) History of present illness: Patient is a very pleasant 64-year-old female who is seen examined at the bedside with her daughter available via telephone for further evaluation of her cervical spine. She presented to the emergency department for altered mental status and memory loss. 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 She has been working at this facility for long time and knows her job and the people at work very well. 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 She also started feeling lightheadedness, dizziness but no spinning or vertigo. Patient still remembers most of the details that happened during this episode of confusion. She remembers that she could not remember the person's that she knew very well. She has to go to the board to find out where the people were sitting whom she knows very well. She presented to the emergency department for further evaluation. Neurology ordered brain MRI and cervical MRI imaging. This has been completed. Brain MRI was reported as normal. No acute stroke. EEG was normal. Patient's coworkers at the facility sent a handwritten note, which mentioned that they noticed that she was tachycardic between 10 2-1 22, short of breath, very confused, hypotensive with blood pressure 90/40 at 6:30 PM. Blood glucose was 95 at 6:40 PM. She had slow speech, delayed and was forgetful. She was also feeling dizziness and lightheadedness. When questioned in regards to her cervical spine, patient states she has been experiencing ongoing numbness in her hands and fingers bilaterally. She has had significant change in her gait which has been ongoing greater than 4 months. She has fallen multiple times. She states when in cervical extension she will have pain and will radiate down the upper extremities greater on the left than the right. She states the pain will radiate over her left shoulder and down her arm. She does feel weakness with her arms bilaterally and drop stuff out of her hands. She has more weakness with her left upper extremity than the right. She is unsteady with her gait and drift during ambulation. She does have significant medical history which includes diabetes, hypertension, rheumatoid arthritis, and thyroid disorder. The patient is seen and examined at bedside. Her daughter is with her as well. I agree with the above dictation. She has significant weakness at her left upper extremity and evidence of myelopathy that correlates well with her severe cervical stenosis and cervical myelomalacia. I think that this issue is unrelated to her memory loss and she is continuing treatment for that with neurology. The patient has severe stenosis with myelopathy and weakness and I think that she is a candidate for surgical intervention for her cervical spine in the form of decompression and fusion as stated above. I think this would offer her the best chance of halting the progression of the disease and give her the best chance of making improvement in terms of her neurologic function and stability in her cervical spine I explained this to the patient and to her daughter at length. Answered their questions best my ability limb she understand I discussed risks including but limited to the risk of bleeding risk of infection risk of need for further surgery risk of decrease in loss of motion nerve damage permanent changes in her neurologic function was all explained to them. They are interested in proceeding. She is scheduled to be discharged from a medicine standpoint and I think that is okay as we can see her back in the next few days at the clinic to arrange for surgical intervention in the near future. Past Medical History Past Medical History: Diabetes Mellitus, Hypertension, Thyroid Disorder Additional Past Medical History / Comment(s): hypothyroid History of Any Multi-Drug Resistant Organisms: None Reported Past Surgical History: Appendectomy, Section, Tonsillectomy Past Anesthesia/Blood Transfusion Reactions: No Reported Reaction Past Psychological History: No Psychological Hx Reported Smoking Status: Former smoker Past Alcohol Use History: None Reported Past Drug Use History: None Reported Medications and Allergies Home Medications Medication Instructions Recorded Confirmed Type Levothyroxine Sodium [Synthroid] 75 mcg PO DAILY 08/23/21 01/06/25 History metFORMIN HCL [Glucophage] 1,000 mg PO BID 08/23/21 01/06/25 History Atorvastatin [Lipitor] 80 mg PO DAILY 01/06/25 01/06/25 History Ezetimibe [Zetia] 10 mg PO DAILY 01/06/25 01/06/25 History Naproxen [Naprosyn] 500 mg PO BID PRN 01/06/25 01/06/25 History glyBURIDE [Diabeta] 20 mg PO DAILY 01/06/25 01/06/25 History Aspirin 81 mg PO DAILY #30 tab 01/08/25 Rx Allergies Allergy/AdvReac Type Severity Reaction Status Date / Time diazepam [From Valium] AdvReac Vomiting Verified 01/06/25 10:09 Physical Examination Osteopathic Statement: *. No significant issues noted on an osteopathic structural exam other than those noted in the History and Physical/Consult. Physical exam: Patient is awake, alert, and oriented 3 Vital signs stable Good chest excursion with deep inspiration and expiration Examination of the cervical spine reveals skin is intact with no abrasions, lacerations, or bruises; no erythema, purulence or signs of infection Full range of motion of the cervical spine with adequate flexion, extension, and bilateral rotation Positive Spurling sign Motor strength the upper extremities 4/5 including copy machine operator bilaterally and interossei Motor strength of the upper extremity is 4/5 with breakaway strength including the biceps on the left Motor strength upper extremity is 4-/5 including the deltoids on the left Upper extremity hyperreflexia bilaterally with brachial radialis reflex Hoffmans sign positive gative upper extremity bilaterally Results Pertinent studies: MRI of the cervical spine taken on 01/07/2025: Evidence of cord signal change at C4-5; C3-4 disc osteophyte complex, bilateral facet spondylosis and uncovertebral joint spondylosis resulting in mild to moderate central canal stenosis and mild bilateral foraminal stenosis; C4-5 disc osteophyte complex, bilateral facet spondylosis and uncovertebral joint spondylosis with moderate central canal stenosis and cord signal change with moderate left and mild right neuroforaminal stenosis; C5-6 disc osteophyte complex, bilateral facet spondylosis and uncovertebral joint spondylosis with moderate to severe spinal canal stenosis and moderate bilateral foraminal stenosis; C6-7 disc osteophyte complex, bilateral facet spondylosis and uncovertebral joint spondylosis with moderate to severe spinal canal stenosis and mild bilateral foraminal stenosis - Labs Labs: Abnormal Lab Results - Last 24 Hours (Table) 01/07/25 01/07/25 01/07/25 Range/Units 13:21 17:38 19:23 POC Glucose (mg/dL) 146 H 154 H 192 H (70-110) mg/dL 01/08/25 Range/Units 06:09 POC Glucose (mg/dL) 141 H (70-110) mg/dL H & H 01/05/25 01/06/25 Range/Units 20:33 05:41 Hgb 13.6 12.0 (11.4-16.0) gm/dL Hct 43.7 38.7 (34.0-46.0) % Coagulation 01/05/25 Range/Units 20:33 INR 0.9 (<1.2) Result Diagrams: 01/06/25 05:41 01/06/25 05:41 Assessment and Plan Assessment: Assessment: C4-5 cervical myelomalacia with cord signal change Cervical myelopathy Upper extremity weakness greater on the left than the right Upper extremity radiculopathy C3-4 mild to moderate central canal stenosis C4-5 moderate central canal stenosis with cord signal change C5-6 and C6-7 moderate to severe spinal canal stenosis Positive Cheung's sign bilaterally Upper extremity hyperreflexia Unsteady gait Frequent falls Altered mental status Diabetes mellitus Hypertension Rheumatoid arthritis Thyroid disorder (1) Cervical stenosis of spinal canal Current Visit: Yes Status: Acute Code(s): M48.02 - SPINAL STENOSIS, CERVICAL REGION SNOMED Code(s): 35817088 (2) Cervical myelopathy Current Visit: Yes Status: Acute Code(s): G95.9 - DISEASE OF SPINAL CORD, UNSPECIFIED SNOMED Code(s): 236608939 (3) Cervical cord myelomalacia Current Visit: Yes Status: Acute Code(s): G95.89 - OTHER SPECIFIED DISEASES OF SPINAL CORD SNOMED Code(s): 38762981 (4) Upper extremity weakness Current Visit: Yes Status: Acute Code(s): R29.898 - OTH SYMPTOMS AND SIGNS INVOLVING THE MUSCULOSKELETAL SYSTEM SNOMED Code(s): 265982281 (5) Radiculopathy affecting upper extremity Current Visit: Yes Status: Acute Code(s): M54.10 - RADICULOPATHY, SITE UNSPECIFIED SNOMED Code(s): 47352913 (6) Frequent falls Current Visit: Yes Status: Acute Code(s): R29.6 - REPEATED FALLS SNOMED C ode(s): 321676045 (7) Unsteady gait Current Visit: Yes Status: Acute Code(s): R26.81 - UNSTEADINESS ON FEET SNOMED Code(s): 43687830 (8) Hyperreflexia Current Visit: Yes Status: Acute Code(s): R29.2 - ABNORMAL REFLEX SNOMED Code(s): 96698883 (9) Diabetes mellitus Current Visit: Yes Status: Acute Code(s): E11.9 - TYPE 2 DIABETES MELLITUS WITHOUT COMPLICATIONS SNOMED Code(s): 10490342 (10) Hypertension Current Visit: Yes Status: Acute Code(s): I10 - ESSENTIAL (PRIMARY) HYPERTENSION SNOMED Code(s): 24160710 (11) Thyroid disorder Current Visit: Yes Status: Acute Code(s): E07.9 - DISORDER OF THYROID, UNSPECIFIED SNOMED Code(s): 00599385 (12) Rheumatoid arthritis Current Visit: Yes Status: Acute Code(s): M06.9 - RHEUMATOID ARTHRITIS, UNSPECIFIED SNOMED Code(s): 03918039 (13) AMS (altered mental status) Current Visit: Yes Status: Acute Code(s): R41.82 - ALTERED MENTAL STATUS, UNSPECIFIED SNOMED Code(s): 257822047 Plan: Plan: 1. 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 We did discuss this is not related to her anterior cervical spine. We discussed her anterior cervical spine MRI imaging and her symptoms in significant detail. She does have evidence of multiple level degenerative changes with significant spinal stenosis at her cervical spine at C3-4, C4-5, C5-6, and C6/7 with evidence of cord signal change at C4-5. On physical examination, patient does have myelopathic symptoms. She has evidence of positive Kelli sign bilaterally. She has upper extremity hyperreflexia. She also has weakness with her bilateral upper extremities with her copy machine operator bilaterally, interossei bilaterally, biceps on the left, and deltoids on the left. She has been sustaining frequent falls and is unsteady with her gait. This has been ongoing for a number of months. These are not new symptoms for her. She also has upper extremity radiculopathy greater on the left than the right. She also has a positive Spurling sign. We discussed her MRI imaging in significant detail. This was discussed with the patient as well as her daughter. We did discuss that based on her symptoms and her imaging, she is a candidate for surgical intervention at her cervical spine and we strongly recommend considering proceeding forward with surgical intervention. We did discuss this is not need to be performed during her admission to the hospital. We would plan to have her follow-up in the outpatient setting in approximately 1 week for further evaluation. Patient and her daughter state at the bedside they would like to further discuss this treatment option in greater detail together and with further family. They do feel they may wish to proceed forward with surgical intervention in the future in the outpatient setting. We did discuss we would plan to have her follow-up with Zach Neil PA-C or Dr. Alexander Saini at [facility] in 1 week following discharge. We did discuss the significance of her cord signal change and her cervical stenosis and that even with surgical intervention she will most likely not return to her baseline before the onset of her symptoms but that surgical intervention could prevent her symptoms from worsening and she may be able to have some improvement of her symptoms over time postoperatively. We did discuss in detail the surgical intervention will most likely not alleviate her cervical myelopathy symptoms. Patient and daughter seem to understand. We did discuss we would clear the patient for discharge from an orthopedic spine standpoint with close follow-up evaluation in 1 week in the outpatient setting. Patient and family agreed this is a good plan of care. 2. Patient has been discussed in detail with medicine who may be planning to discharge the patient home. 3. Patient will continue be seen examined by neurology. Time with Patient: Greater than 30 (Including obtaining history, physical examination, reviewing of imaging, and dictation.)
[2025-01-08 11:59] LABS: Glucose,Whole Blood 163 mg/dL (70-110)
[2025-01-08] MEDS: CYANOCOBALAMIN 1,000 MCG/ML 1 ML VIAL IM SCH (13:55)
[2025-01-08 14:26] VITALS: BP 165/80; PULSE 68; TEMP 97.6
[2025-01-09] MEDS ORDERED: ASPIRIN 81 MG PO SCH (09:00)
--- NOTE | 2025-01-10 10:17 | P.PN ---
Subjective Progress Note Date: 01/08/25 Patient was seen for follow-up. Patient is laying in the bed. Denies any new neurological symptoms. States overall feeling better. Objective - Vital Signs Vital signs: Vital Signs Temp 97.4 F L 01/08/25 07:00 Pulse 67 01/08/25 07:00 Resp 17 01/08/25 07:00 BP 125/67 01/08/25 07:00 Pulse Ox 96 01/08/25 07:00 FiO2 Intake & Output 01/07/25 01/08/25 01/08/25 18:59 06:59 18:59 Intake Total 776 Balance 776 Weight 83.915 kg Intake: Oral 776 Other: # Voids 3 1 # Bowel Movements 0 - Exam Patient's mental status, cranial nerves are normal. On muscle strength testing, (right/left), deltoid 5/5-, biceps 5/5, triceps 5/5, discotheque dancer 4/4-, hip flexion 4+5-/5-, ankle dorsiflexion 5/5, toe extension 5/5. Plantar is downgoing on the right, up on the left. - Labs CBC & Chem 7: 01/06/25 05:41 01/06/25 05:41 Labs: Abnormal Lab Results - Last 24 Hours (Table) 01/07/25 01/07/25 01/07/25 Range/Units 13:21 17:38 19:23 POC Glucose (mg/dL) 146 H 154 H 192 H (70-110) mg/dL 01/08/25 01/08/25 Range/Units 06:09 11:58 POC Glucose (mg/dL) 141 H 163 H (70-110) mg/dL Assessment and Plan Assessment: * 64-year-old female presented with sudden onset of confusion, some amnesia, dizziness, lightheadedness and gait imbalance, that started 4 PM yesterday. Symptoms have mostly resolved, but still feels slightly lightheaded, and has to focus to remember. Acute stroke ruled out. Possible TIA, versus TGA. * Lhermitte's symptoms with neck extension, likely due to cervical spinal stenosis * Cervical spinal stenosis, moderate to severe degree at C5-C6 and C6-C7 with abnormal cord signal at C4-C5 level. * Grade 1 anterolisthesis of C4 on C5. * Vitamin B12 deficiency * Rheumatoid arthritis, on Orencia * Diabetes * Hypertension * Hyperlipidemia * Hypothyroidism Plan: * MRI brain was normal. No evidence of intracranial mass, acute/subacute infarct. Nonspecific white matter changes, likely secondary to small vessel ischemic disease. I personally reviewed MRI, agree with the findings. No acute stroke. * MRI of the cervical spine, revealed abnormal cord signal at the level of C4-C5 prominent in the right with moderate spinal canal stenosis. Etiology unclear given only moderate spinal canal stenosis. Correlate for demyelination. Correlate for history of trauma. Grade 1 anterolisthesis of C4 on C5. Multilevel disc degeneration with associated osteoarthritic changes moderate to severe spinal canal stenosis at C5 6, at C6-C7. I personally reviewed MRI agree with the findings. * Orthopedic spine surgery input appreciated. Agree with C4 5 cervical myelomalacia with cord signal change and moderate canal stenosis at C4 5, moderate to severe spinal canal stenosis at C5 6 and C6 7. They are recommending surgery but patient will be scheduled as an outpatient. * EEG was normal awake and drowsy. No focal, lateralized or epileptiform activity was seen. * Hemoglobin A1c 10.3, recommend optimize control of diabetes to target A1c < 7.0. Check lipid panel, * B12 245, folate 11.10. We will start B12 replacement. Await methylmalonic acid. * Continue aspirin 81 mg daily. * PT OT evaluate gait. * Neurologically clear for discharge. Patient to follow-up with orthopedic surgery outpatient.
--- NOTE | 2025-01-11 21:28 | P.DS ---
Providers Date of admission: 01/05/25 23:23 Attending physician: Soha Tucker Consults: 01/05/25 23:22 Consult Physician Routine Consulting Provider: Jarod Ellis Consult Reason/Comments: ams Do you want consulting provider notified?: Yes 01/07/25 14:04 Consult Physician Routine Consulting Provider: Chicho Saini Consult Reason/Comments: Cervical spinal stenosis, symptomatic Do you want consulting provider notified?: Yes Primary care physician: Nick Garcia Hospital Course: Final Diagnosis TIA with transient global amnesia severe cervical stenosis with myelopathy and weakness, orthopedical spinal recommending decompression and fusion on an outpatient basis Grade 1 anterolisthesis of C4 on C5. Diabetes mellitus uncontrolled with hemoglobin A1C 10.3. Hypertension Hyperlipidemia Rheumatoid arthritis maintained on orencia Thyroid disorder Discharge Disposition Patient stable for discharge home. Will continue on high dose statin therapy and will also discharge on aspirin 81 mg daily. Patient needs close follow up with Dr Saini on discharge to further discuss and schedule surgery. Recommend to follow up with neurology in 1 week. [facility] PCP Dr. Nick Garcia 1 to 2 days. Repeat labs as an outpatient. Hospital Course 64-year-old female came in with complaints of transient episode of memory loss. Patient had a mild leukocytosis on admission but does not appear infectious, chest xray is unremarkable and urinalysis is slightly abnormal however patient has no complaints of dysuria urgency. Patient has no chest pain or shortness of breath. There are no significant electrolyte abnormalities except for low magnesium which will be replaced. Patient was told by the nurse yesterday that she does have weakness in the left arm which is not evident at this time patient does have some neck pain and neuropathy and weakness in bilateral upper extremities in general because of cervical spondylosis/myelopathy. Patient was admitted to the hospital with concern for TIA and global amnesia and neurology was consulted. MRI brain was normal. No evidence of intracranial mass, acute/subacute infarct. Nonspecific white matter changes, likely secondary to small vessel ischemic disease. EEG was normal awake and drowsy. No focal, lateralized or epileptiform activity was seen. Patient has been continued on aspirin 81 mg daily. Hemoglobin A1C was found to be 10.3 and recommend a target of less than 7 and patients blood sugars are fairly well controlled here would recommend follow up with PCP on discharge to adjust medications. Vitamin B12 and Folate WNL. MRI of the cervical spine, revealed abnormal cord signal at the level of C4-C5 prominent in the right with moderate spinal canal stenosis. Etiology unclear given only moderate spinal canal stenosis. Correlate for dem yelination. Correlate for history of trauma. Grade 1 anterolisthesis of C4 on C5. Multilevel disc degeneration with associated osteoarthritic changes moderate to severe spinal canal stenosis at C5 6, at C6-C7. Orthopedic spinal surgery was consulted and recommending close follow up in the office within the next week the schedule surgery and patient in the mean time to discuss with her family before deciding on surgery. Please see medication reconciliation for a list of current medications. Thank you for allowing us to participate in the care of this patient. The impression and plan of care has been dictated by Talia Hugo, Nurse Practitioner as directed. Dr. Mandie MD I have performed a history and physical examination and medical decision making of this patient, discussed the same with the dictator, and agree with the dictators assessment and plan as written, documented as a scribe. Based on total visit time, I have performed more than 50% of this visit. Patient Condition at Discharge: Good Plan - Discharge Summary Discharge Rx Participant: No New Discharge Prescriptions: New Aspirin 81 mg PO DAILY #30 tab Continue metFORMIN HCL [Glucophage] 1,000 mg PO BID Ezetimibe [Zetia] 10 mg PO DAILY Atorvastatin [Lipitor] 80 mg PO DAILY Levothyroxine Sodium [Synthroid] 75 mcg PO DAILY Naproxen [Naprosyn] 500 mg PO BID PRN PRN Reason: Pain glyBURIDE [Diabeta] 20 mg PO DAILY Discharge Medication List Levothyroxine Sodium [Synthroid] 75 mcg PO DAILY 08/23/21 [History] metFORMIN HCL [Glucophage] 1,000 mg PO BID 08/23/21 [History] Atorvastatin [Lipitor] 80 mg PO DAILY 01/06/25 [History] Ezetimibe [Zetia] 10 mg PO DAILY 01/06/25 [History] Naproxen [Naprosyn] 500 mg PO BID PRN 01/06/25 [History] glyBURIDE [Diabeta] 20 mg PO DAILY 01/06/25 [History] Aspirin 81 mg PO DAILY #30 tab 01/08/25 [Rx] Follow up Appointment(s)/Referral(s): Zach Neil PAC [PHYSICIAN RAYON TESTER] - 01/12/25 2:30 pm (Patient may follow-up with Zach Neil PA-C or Dr. Alexander Saini at [facility] in 2 or 3 days following discharge. ) Nick Garcia MD [Primary Care Provider] - 1-2 days Darci Li DO [STAFF PHYSICIAN] - 1 Week (Neurology) Ambulatory/Diagnostic Orders: Basic Metabolic Panel [LAB.AMB] Location: None Selected Complete Blood Count w/diff [LAB.AMB] Time Frame: 3 Days, Location: None Selected Patient Instructions/Handouts: Transient Ischemic Attack (DC), Anterior Posterior Spinal Fusion (DC) Activity/Diet/Wound Care/Special Instructions: Hemoglobin A1C 10.3 Recommend diet modifications and follow up closely with your PCP Need to follow up with neurology on discharge Dr Li was recommended Follow up with Dr Saini/ Zach MAYBERRY early next week in the office to discuss and scheduled surgery. Discharge Disposition: HOME SELF-CARE
== END 2025-01-08 16:00 | disposition home or self-care (01) ==
LOC: EC 20:06 → 6NMEDSUR 23:23
PROVIDERS: ADMIT Hospitalist; ATTEND Hospitalist
DX: G45.4 Transient global amnesia (principal); M48.02 Spinal stenosis, cervical region; M47.12 Other spondylosis with myelopathy, cervical region; M50.021 Cervical disc disorder at C4-C5 level with myelopathy; M50.121 Cervical disc disorder at C4-C5 level with radiculopathy; M43.12 Spondylolisthesis, cervical region; D72.829 Elevated white blood cell count, unspecified; E03.9 Hypothyroidism, unspecified; E11.65 Type 2 diabetes mellitus with hyperglycemia; E53.8 Deficiency of other specified B group vitamins; E78.5 Hyperlipidemia, unspecified; E83.42 Hypomagnesemia; G95.89 Other specified diseases of spinal cord; M06.9 Rheumatoid arthritis, unspecified; M17.0 Bilateral primary osteoarthritis of knee; R29.6 Repeated falls; H61.20 Impacted cerumen, unspecified ear; I10 Essential (primary) hypertension; Z79.82 Long term (current) use of aspirin; Z79.84 Long term (current) use of oral hypoglycemic drugs; Z79.890 Hormone replacement therapy; Z79.899 Other long term (current) drug therapy; Z87.891 Personal history of nicotine dependence; Z88.8 Allergy status to other drugs, medicaments and biological substances
CPT/HCPCS: 96361 ×2; 96365; 96366; 96372 ×2; 99285; 36415; 95816; 93005; 83921; 80053 ×2; 82607; 82746; 83735; 84100; 84484; 85025 ×2; 85610; 85730; 81001; 83036; 87636; 71046; 70496; 70450; 70498; 70551; 72141; G0378 ×4; J1644 ×2; J3475; Q9967

== ENCOUNTER → 2025-01-14 | Outpatient (CLI) | payer MEDICARE, OTHER ==
[2025-01-15 01:41] LABS: BUN/Creat Ratio 39.86 Ratio (12.00-20.00); Blood Urea Nitrogen 27.9 mg/dL (9.0-27.0); Calcium 10.1 mg/dL (8.7-10.3); Carbon Dioxide 27.4 mmol/L (21.6-31.8); Chloride 102 mmol/L (96-109); Glucose 104 mg/dL (70-110); Potassium 4.4 mmol/L (3.5-5.5); Sodium 141 mmol/L (135-145)
[2025-01-15 01:44] LABS: Basophils # (A) 0.08 X 10*3/uL (0.00-0.10); Basophils % (A) 0.6 %; Eosinophils # (A) 0.37 X 10*3/uL (0.04-0.35); HCT 43.9 % (37.2-46.3); HGB 13.7 g/dL (12.0-15.0); Lymphocytes # (A) 4.24 X 10*3/uL (0.90-5.00); Lymphocytes % (A) 34.3 %; MCH 28.8 pg (27.0-32.0); MCHC 31.2 g/dL (32.0-37.0); MCV 92.2 FL (80.0-97.0); Mean Platelet Volume 12.7 FL (9.5-12.2); Monocytes # (A) 0.71 X 10*3/uL (0.20-1.00); Monocytes % (A) 5.7 %; NRBC Per 100 WBC 0 X 10*3/uL (0.00-0.01); Neutrophils # (A) 6.92 X 10*3/uL (1.80-7.70); Platelet Count 234 X 10*3/uL (140-440); RBC 4.76 X 10*6/uL (4.10-5.20); RDW 13.2 % (11.5-14.5); WBC 12.37 X 10*3/uL (4.50-10.00)
== END | disposition home or self-care (01) ==
LOC: LABWHC1 15:31
PROVIDERS: ATTEND Pediatrics
DX: G45.9 Transient cerebral ischemic attack, unspecified (principal); R73.9 Hyperglycemia, unspecified
CPT/HCPCS: 36415; 80048; 85025

== ENCOUNTER → 2025-02-02 | Outpatient (CLI) | payer MEDICARE, OTHER ==
[2025-02-02 14:13] LABS: INR 0.9 (<1.2); Prothrombin Time 9.9 sec (10.0-12.5)
--- NOTE | 2025-02-02 14:29 | XR ---
EXAMINATION TYPE: XR chest 2V DATE OF EXAM: 02/02/2025 2:23 PM COMPARISON: Chest radiographs from 01/05/2025. CLINICAL INDICATION: Female, 64 years old with history of CERVICAL STENOSIS; [facility] TECHNIQUE: XR chest 2V Frontal and lateral views of the chest. FINDINGS: Lungs/Pleura: There is no evidence of pleural effusion, focal consolidation, or pneumothorax. Pulmonary vascularity: Unremarkable. Heart/mediastinum: Cardiomediastinal silhouette is unremarkable. Musculoskeletal: No acute osseous pathology. Other findings: None IMPRESSION: No acute cardiopulmonary disease/process. [facility], , 02/02/2025 2:26 PM
[2025-02-02 14:36] LABS: Partial Thromboplastin Time 21.8 sec (22.0-30.0)
[2025-02-02 16:06] LABS: Appearance,Urine Clear (Clear); Bilirubin,Urine Negative (Negative); Blood,Urine Negative (Negative); Color,Urine Light Yellow; Glucose,Urine (UA) Negative (Negative); Ketones,Urine Negative (Negative); Leukocyte Esterase,Urine Small (Negative); Mucus,Urine Rare /hpf; Nitrite,Urine Negative (Negative); PH, Urine 5.5 (5.0-8.0); Protein,Urine Negative (Negative); RBC,Urine 3 /hpf (0-5); Specific Gravity,Urine 1.021 (1.001-1.035); Squamous Epithelial Cell,Urine <1 /hpf (0-4); Urobilinogen,Urine <2.0 mg/dL (<2.0); WBC,Urine 7 /hpf (0-5)
[2025-02-02 18:39] LABS: Basophils # (A) 0.07 X 10*3/uL (0.00-0.10); Basophils % (A) 0.8 %; Eosinophils % (A) 2.2 %; HCT 45.2 % (37.2-46.3); HGB 14.2 g/dL (12.0-15.0); Lymphocytes # (A) 2.67 X 10*3/uL (0.90-5.00); Lymphocytes % (A) 28.8 %; MCHC 31.4 g/dL (32.0-37.0); MCV 92.2 FL (80.0-97.0); Mean Platelet Volume 11.4 FL (9.5-12.2); Monocytes % (A) 4.3 %; NRBC Per 100 WBC 0 X 10*3/uL (0.00-0.01); Neutrophils # (A) 5.91 X 10*3/uL (1.80-7.70); Neutrophils % (A) 63.6 %; Platelet Count 255 X 10*3/uL (140-440); RDW 13.1 % (11.5-14.5); WBC 9.28 X 10*3/uL (4.50-10.00)
[2025-02-02 18:59] LABS: BUN/Creat Ratio 23.71 Ratio (12.00-20.00); Blood Urea Nitrogen 16.6 mg/dL (9.0-27.0); Calcium 9.8 mg/dL (8.7-10.3); Carbon Dioxide 26.3 mmol/L (21.6-31.8); Chloride 103 mmol/L (96-109); Glucose 119 mg/dL (70-110); Sodium 141 mmol/L (135-145)
== END | disposition home or self-care (01) ==
LOC: LABPAT 13:28
PROVIDERS: ATTEND Orthopaedic Surgery Orthopaedic Surgery of the Spine
DX: Z01.818 Encounter for other preprocedural examination (principal); Z22.322 Carrier or suspected carrier of Methicillin resistant Staphylococcus aureus; M48.02 Spinal stenosis, cervical region
CPT/HCPCS: 71046; 80048; 81001; 85025; 85610; 85730; 86850; 86900; 86901; 87070; 93005

== ENCOUNTER 2025-02-11 08:41 | Inpatient (IN) | payer MEDICARE, OTHER ==
[2025-02-11 09:32] LABS: Glucose,Whole Blood 141 mg/dL (70-110)
[2025-02-11] MEDS: LACTATED RINGERS 1,000 ML IV ONE ×3 (09:45→15:16)
[2025-02-11] MEDS: ONDANSETRON 4 MG/2 ML VIAL IVP ONE (09:49)
[2025-02-11] MEDS ORDERED: fentaNYL (PF) 50 MCG/ML 2 ML AMP ONE (10:40)
[2025-02-11] MEDS ORDERED: MIDAZOLAM 2 MG/2 ML VIAL ONE (10:40)
[2025-02-11] MEDS ORDERED: PHENYLEPHRINE 10 MG/ML VIAL ONE (10:40)
[2025-02-11] MEDS ORDERED: LIDOCAINE 1% INJ 10MG/ML (20 ML MDV) ONE (10:40)
[2025-02-11] MEDS ORDERED: GLYCOPYRROLATE 0.2 MG/ML 2 ML VIAL ONE (10:40)
[2025-02-11] MEDS ORDERED: KETAMINE HCL IN 0.9 % NACL 50 MG/5 ML SYRINGE ONE (10:40)
[2025-02-11] MEDS ORDERED: NEOSTIGMINE 1 MG/ML 10 ML VIAL ONE (10:40)
[2025-02-11] MEDS ORDERED: PROPOFOL 10 MG/ML 20 ML VIAL IV ONE (10:40)
[2025-02-11] MEDS ORDERED: ePHEDrine 50 MG/ML 1 ML VIAL ONE (10:40)
[2025-02-11] MEDS ORDERED: ROCURONIUM 10 MG/ML (5 ML VIAL) IV ONE (10:40)
[2025-02-11] MEDS: ceFAZolin 2 GM in DEXTROSE 5% IN WATER 50 ML IVPB PRN (10:45)
[2025-02-11] MEDS: ceFAZolin 1,000 MG in SODIUM CHLORIDE 0.9% IRRIGATIO 1,000 ML IRRIGATION PRN (10:45)
[2025-02-11] MEDS: LIDOCAINE 2%-EPI 1:100,000 20 ML VIAL SQ ONE (11:18)
[2025-02-11] MEDS: THROMBIN (BOVINE) 5,000 UNIT VIAL MISCELLANE ONE (11:18)
[2025-02-11] MEDS: BUPIVACAINE (PF) 0.5% 30 ML VIAL SQ ONE (11:18)
--- NOTE | 2025-02-11 11:57 | XR ---
EXAMINATION TYPE: XR cervical spine 1V DATE OF EXAM: 02/11/2025 COMPARISON: MRI cervical spine January 07, 2025 CLINICAL INDICATION: Female, 64 years old with history of ANTERIOR CERVICAL ,CERVICAL STENOSIS; pain TECHNIQUE: Single crosstable lateral view of cervical spine is obtained intraoperatively. FINDINGS: Exam is for surgical planning and not for diagnostic purposes. Metallic pointer is localize d at the C3-C4 disc space level. IMPRESSION: As above. [facility], , 02/11/2025 11:55 AM
[2025-02-11] MEDS ORDERED: BENZOCAINE/MENTHOL LOZENG 1 EACH LOZENGE MUCOUS MEM PRN (13:32)
[2025-02-11] MEDS ORDERED: CYCLOBENZAPRINE 10 MG TAB PO PRN (13:32)
[2025-02-11] MEDS ORDERED: ONDANSETRON 4 MG/2 ML VIAL IVP PRN (13:32)
[2025-02-11] MEDS ORDERED: HYDROmorphone 2 MG/ML 1 ML SYRINGE IVP PRN (13:32)
[2025-02-11] MEDS ORDERED: HYDROmorphone 0.5 MG/0.5 ML SYRINGE IVP PRN (13:32)
--- NOTE | 2025-02-11 13:38 | P.OP ---
Date of Procedure: 02/11/25 Preoperative Diagnosis: Severe cervical stenosis C3-4 C4-5 C5-6 C6-7, cervical myelomalacia, cervical myelopathy, upper extremity weakness, disc herniation C3-4 C4-5 C5-6 C6-7, degenerative disc disease Postoperative Diagnosis: Same Anesthesia: GETA Pathology: none sent Condition: stable Disposition: PACU Description of Procedure: BRIEF OPERATIVE NOTE Preoperative Diagnosis:Severe cervical stenosis C3-4 C4-5 C5-6 C6-7, cervical myelomalacia, cervical myelopathy, upper extremity weakness, disc herniation C3- 4 C4-5 C5-6 C6-7, degenerative disc disease Postoperative Diagnosis:Severe cervical stenosis C3-4 C4-5 C5-6 C6-7, cervical myelomalacia, cervical myelopathy, upper extremity weakness, disc herniation C3- 4 C4-5 C5-6 C6-7, degenerative disc disease Procedure: Anterior cervical decompression with discectomy and fusion C3-4 C4-5 C5-6 C6-7 Placement of interbody graftC3-4 C4-5 C5-6 C6-7 Application of anterior cervical plate C3-4-5 6 and 7 Surgeon: Dr. Saini Spinner Iron: Zach MAYBERRY who is present throughout the entire the case persistence during positioning, dissection, exposure, visualization, and all crucial elements of the case as well as closure. Anesthesia: General anesthesia Estimated blood loss: Approximately 100 cc Complications: None apparent Components implanted: Terry [place] anterior cervical plate system with Vikos interbody allograft bone graft and 1 cc of DBX bone putty Disposition: To recovery room in good stable condition. OPERATIVE INDICATIONS The patient has had long-standing issues in their neck and upper extremities. She has been having's significant issues over the past year and worsening over the past several months. She is having troubles with her neck her balance and her upper extremity balance and coordination. The patient has been through conservative treatment. She has found out evidence of severe cervical stenosis with myelomalacia which correlated well with her cervical myelopathy symptoms. She had multilevels of issues with severe stenosis. She was not having any benefit despite conservative management. We discussed various treatment options including surgery, and the patient wishes to proceed with surgery We discussed the risk, patient's alternatives and benefits of surgery including but not limited to, risk of bleeding risk of infection, risk of need for further surgery, risk of decreased, loss of motion, muscle function, malunion nonunion, hardware failure, nerve damage, paralysis, heart attack, and . OPERATIVE SUMMARY After discussing all the risks, patient alternatives and benefits at length, the patient elected to proceed with surgical intervention, signed informed consent, and presented for their procedure. The patient was seen and examined in the preoperative holding area and the surgical site was marked. The patient was given antibiotics and brought to the operating room. The patient was positioned on the operating room table in a supine position being careful to pad any bony prominences and pressure points. The patient was sedated and intubated by anesthesia in standard fashion. Once the airway and C-spine were stabilized the patient's arms were padded and tucked at her side, with her shoulders gently taped. The head was placed in a donut pad with the neck in good neutral alignment and position. We were careful to maintain the patient's cervical spine and good neutral alignment and position throughout. The patient was prepped and draped in a normal standard fashion. An appropriate timeout and keystone protocol performed. We were able to proceed with the surgery. The local wound area was infiltrated with local anesthetic. An incision was made longitudinally approximately 2-1/2 cm over the appropriate levels at C3-C7. Dissection was taken down subcutaneously to the level of the platysma which was split in line with its fibers. Dissection was taken with a carotid approach, with the trachea and esophagus medial and the carotid sheath laterally. We dissected down to the anterior surface of the vertebral bodies. Intraoperative x-ray was taken which showed a marker at the appropriate level at C3-4. With the appropriate level positively confirmed, we were able to proceed with discectomy at the appropriate levels for starting at C3-4 and then moving to C4-5 then C5-6 and C6-7. All of the operative levels were exposed appropriately. The patient had all their twitches back, and there was no evidence of recurrent laryngeal issue. The wound was copiously irrigated and suctioned dry as had been done periodically throughout the case. At the appropriate level/levels, first at C3-4 and then moving at C4-5 and then C5-6 and then at C6-7 I established an annulotomy with an 11 blade scalpel. A discectomy was performed with a combination of pituitary rongeurs, curettes, a high-speed bur, and Kerrison rongeurs. The posterior longitudinal ligament was taken down as were any posterior osteophytes. This gave good central and bilateral foraminal decompression. There had been severe central and bilateral foraminal stenosis which was remedied with a discectomy and decompression. There is no evidence of any dural tear or leak. The endplates were prepared with a high-speed bur. With the endplates in good parallel position, I was able to size for the appropriate size interbody graft. The wound was irrigated and suctioned dry the graft was prepared and malleted into position. It had good alignment and position with the anterior surface flush with the anterior surface of the vertebral bodies. This was done similarly the appropriate levels from C3-C7. With the grafts intact, I was able to measure and contour and appropriate sized plate. The plate was positioned at the midline over the appropriate levelsC3-4 C4-5 C5-6 C6-7. Screw holes were established with a hand drill and drill guide. Screws were placed in good alignment and position with excellent bony purchase. They were seated under the locking device. The construct was checked and found to be stable. Intraoperative x-ray was taken which showed good alignment and position of the implants at the appropriate levels. There was no evidence of any dural tear or leak. Good hemostasis was maintained. The wound was copiously irrigated and suctioned dry as had been done periodically throughout the case. The platysma was closed with absorbable suture. The subcutaneous tissue was closed. The subcuticular tissue was closed with absorbable suture. The wound was cleaned and dried and dressed appropriately. A soft cervical collar was placed appropriately. The patient was woken up by anesthesia, extubated, transferred back gently to their hospital bed and brought to the recovery room in good stable condition. The patient will be admitted to the hospital for appropriate postoperative care, medical management and monitoring. We will continue to follow them closely about the postoperative course.
--- NOTE | 2025-02-11 13:51 | XR ---
EXAMINATION TYPE: XR cervical spine 1V DATE OF EXAM: 02/11/2025 COMPARISON: Cervical spine x-ray earlier today. 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 Suboptimal evaluation due to portable technique and overlying sh oulders. IMPRESSION: As above. [facility], , 02/11/2025 1:48 PM
[2025-02-11] MEDS: HYDROmorphone 0.5 MG/0.5 ML SYRINGE IVP PRN (14:40)
[2025-02-11 14:51] LABS: Glucose,Whole Blood 273 mg/dL (70-110)
[2025-02-11] MEDS: LACTATED RINGERS 1,000 ML IV SCH (14:51)
[2025-02-11] MEDS: INSULIN LISPRO (HumaLOG) 100 UNIT/ML 10 mL VL SQ ONE (15:01)
[2025-02-11] MEDS: ACETAMINOPHEN TAB 325 MG TAB PO PRN (17:14)
[2025-02-11] MEDS: DEXAMETHASONE SOD PHOSPHATE 4 MG/ML 1 ML VIAL IV ONE (18:09)
[2025-02-11] MEDS: SODIUM CHLORIDE 0.9% 1,000 ML IV SCH (18:10)
[2025-02-11] MEDS: ceFAZolin 2 GM in DEXTROSE 5% IN WATER 50 ML IVPB SCH (19:56)
[2025-02-11 20:10] VITALS: RESP 18
[2025-02-11] MEDS: metFORMIN 500 MG TAB PO SCH (20:10)
[2025-02-12] MEDS: HYDROcodone/APAP 5-325MG 1 EACH TAB PO PRN (02:34)
[2025-02-12 06:08] LABS: Glucose,Whole Blood 169 mg/dL (70-110)
[2025-02-12] MEDS: glipiZIDE 5 MG TAB PO SCH (06:16)
[2025-02-12] MEDS: LEVOTHYROXINE 75 MCG TAB PO SCH (06:17)
[2025-02-12 08:02] VITALS: BP 146/76; PULSE 94; TEMP 97.6
--- NOTE | 2025-02-12 10:29 | P.DS ---
Providers Date of admission: 02/11/25 08:41 Expected date of discharge: 02/12/25 Attending physician: Chicho Saini Primary care physician: Nick Garcia - Discharge Diagnosis(es) (1) Status post cervical spinal fusion Current Visit: Yes Status: Acute (2) Degenerative disc disease, cervical Current Visit: Yes Status: Acute (3) Cervicalgia Current Visit: Yes Status: Acute (4) Cervical stenosis of spinal canal Current Visit: Yes Status: Acute (5) Cervical cord myelomalacia Current Visit: No Status: Acute (6) Cervical myelopathy Current Visit: No Status: Acute (7) Diabetes mellitus Current Visit: No Status: Acute (8) Hypertension Current Visit: No Status: Acute (9) Radiculopathy affecting upper extremity Current Visit: No Status: Acute (10) Rheumatoid arthritis Current Visit: No Status: Acute (11) Upper extremity weakness Current Visit: No Status: Acute Hospital Course: This is a pleasant 64-year-old female who presented with a C3-4, C4-5, C5-6, and C6-7 herniated nucleus pulposus with severe spinal stenosis, cervical myelomalacia, cervical myelopathy, cervical upper extremity weakness, and cervical degenerative disc disease who failed outpatient conservative therapy. She admitted for a C3-4, C4-5, C5-6, and C6-7 anterior cervical decompression and fusion. The patient tolerated the procedure well and did well postoperatively. She has some soreness over her shoulders but states her pain is adequately controlled. She has been able to eat without significant difficulty but does not have much of an appetite. Her pain is adequately controlled. She is utilizing a soft cervical collar for comfort and support as needed. She feels her pain is well- controlled and she feels she is ready for discharge today. Condition on day of discharge stable. Patient will be discharged home. Patient was cleared preoperatively for surgery by Dr. Garcia. Patient currently denies any nausea, vomiting, fever, or chills. Patient is eating and voiding freely without difficulty. Patient may shower Optifoam dressing intact. Patient may remove Optifoam dressing in 3 days and shower without a dressing at that time. Patient should refrain from driving until at least after their first follow-up appointment in the office. Patient should av oid excessive neck flexion, extension, rotation, and lateral sidebending; no overhead lifting; no lifting greater than 10 pounds. MAPS has been reviewed today, 02/12/2025, with an Overall Overdose Risk Score of 000. An "Opiod Start Talking" Form has been signed and placed in the patient's chart. A prescription has been written for hydrocodone 5 mg / 325 mg, 1 tab, every 4 hours, as needed for acute pain, dispense #42. Prescription also written for baclofen, 10 mg, 1 tab, 3 times daily, as needed for muscle spasm, dispense #60. Prescriptions are sent to the [facility] pharmacy located within [facility] per request of the patient. Patient's other medical diagnoses include hypertension, hyperlipidemia, history of stroke, type 2 diabetes, and rheumatoid arthritis. 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, thumb strength, interosseous strength, biceps strength, triceps strength, and shoulder strength positive sustained bilaterally Soft cervical collar intact Incision is clean, dry, and intact; no erythema, purulence, or signs of infection Optifoam dressing intact Procedures: C3-4, C4-5, C5-6, and C6-7 anterior cervical decompression and fusion Patient Condition at Discharge: Stable Plan - Discharge Summary Discharge Rx Participant: No New Discharge Prescriptions: New Baclofen 10 mg PO TID PRN #60 tab PRN Reason: Spasms HYDROcodone/APAP 5-325MG [[place] 5] 1 each PO Q4HR PRN #42 tab PRN Reason: Pain No Action metFORMIN HCL [Glucophage] 1,000 mg PO BID Ezetimibe [Zetia] 10 mg PO DAILY Atorvastatin [Lipitor] 80 mg PO DAILY Semaglutide [Ozempic] 0.25 mg SQ MO Magnesium 200 mg PO DAILY Levothyroxine Sodium [Synthroid] 75 mcg PO DAILY Naproxen [Naprosyn] 500 mg PO BID PRN PRN Reason: Pain glyBURIDE [Diabeta] 20 mg PO DAILY Aspirin 81 mg PO DAILY #30 tab Discharge Medication List Levothyroxine Sodium [Synthroid] 75 mcg PO DAILY 08/23/21 [History] metFORMIN HCL [Glucophage] 1,000 mg PO BID 08/23/21 [History] Atorvastatin [Lipitor] 80 mg PO DAILY 01/06/25 [History] Ezetimibe [Zetia] 10 mg PO DAILY 01/06/25 [History] Naproxen [Naprosyn] 500 mg PO BID PRN 01/06/25 [History] glyBURIDE [Diabeta] 20 mg PO DAILY 01/06/25 [History] Aspirin 81 mg PO DAILY #30 tab 01/08/25 [Rx] Magnesium 200 mg PO DAILY 02/10/25 [History] Semaglutide [Ozempic] 0.25 mg SQ MO 02/10/25 [History] Baclofen 10 mg PO TID PRN #60 tab 02/12/25 [Rx] HYDROcodone/APAP 5-325MG [[place] 5] 1 each PO Q4HR PRN #42 tab 02/12/25 [Rx] Follow up Appointment(s)/Referral(s): Chicho Saini DO [Doctor of Osteopathic Medicine] - 02/26/25 2:00 pm (with [place]) Nick Garcia MD [Primary Care Provider] - 1 Week Activity/Diet/Wound Care/Special Instructions: 1. Patient may shower with Optifoam dressing intact. 2. Patient may remove Optifoam dressing in 3 days and shower without a dressing at that time. 3. Patient may wear soft cervical collar for comfort support as needed. 4. Patient should refrain from driving until at least after their first follow- up appointment in the office. 5. Patient should avoid excessive cervical flexion, extension, and side bending; avoid overhead lifting; no lifting greater than 10 pounds 6. Take medications as prescribed 7. Patient should avoid anti-inflammatory medications over the next 6 weeks postoperatively 8. Do not soak in tub Discharge Disposition: HOME SELF-CARE
[2025-02-12] MEDS: ATORVASTATIN 80 MG TAB PO SCH (10:50)
[2025-02-12] MEDS: MAGNESIUM OXIDE 400 MG TAB PO SCH (10:50)
[2025-02-12] MEDS: ASPIRIN 81 MG PO SCH (10:50)
[2025-02-12] MEDS: EZETIMIBE 10 MG TAB PO SCH (10:50)
[2025-02-16] MEDS ORDERED: NON FORMULARY DRUG (Semaglutide [Ozempic] 0.25 MG/0.368 ML Pen.Injctr) SQ SCH (09:00)
== END 2025-02-12 12:15 | disposition home or self-care (01) | DRG 472 ==
LOC: 2ORMAIN 08:41 → EDSTATUS 13:45 → 4SSUR 14:30
PROVIDERS: ADMIT Orthopaedic Surgery Orthopaedic Surgery of the Spine; ATTEND Orthopaedic Surgery Orthopaedic Surgery of the Spine
PROC: 0RB30ZZ Excision of Cervical Vertebral Disc, Open Approach (ICD-10-PCS; 2025-02-11)
PROC: 01N10ZZ Release Cervical Nerve, Open Approach (ICD-10-PCS; 2025-02-11)
PROC: 4A11X4G Monitoring of Peripheral Nervous Electrical Activity, Intraoperative, External Approach (ICD-10-PCS; 2025-02-11)
PROC: 8E09XBG Computer Assisted Procedure of Head and Neck Region, With Computerized Tomography (ICD-10-PCS; 2025-02-11)
PROC: 0RG20A0 Fusion of 2 or more Cervical Vertebral Joints with Interbody Fusion Device, Anterior Approach, Anterior Column, Open Approach (ICD-10-PCS; principal; 2025-02-11 10:30)
DX: M50.11 Cervical disc disorder with radiculopathy, high cervical region (principal); G95.89 Other specified diseases of spinal cord; E11.9 Type 2 diabetes mellitus without complications; M06.9 Rheumatoid arthritis, unspecified; I10 Essential (primary) hypertension; M50.01 Cervical disc disorder with myelopathy, high cervical region; Z79.4 Long term (current) use of insulin; M48.02 Spinal stenosis, cervical region; F41.9 Anxiety disorder, unspecified; E78.00 Pure hypercholesterolemia, unspecified; Z86.73 Personal history of transient ischemic attack (TIA), and cerebral infarction without residual deficits; Z87.891 Personal history of nicotine dependence; Z88.8 Allergy status to other drugs, medicaments and biological substances
CPT/HCPCS: 72020; 94760

== ENCOUNTER 2025-02-15 20:09 | Inpatient (IN) | payer MEDICARE, OTHER ==
[2025-02-15 20:20] LABS: Glucose,Whole Blood 158 mg/dL (70-110)
[2025-02-15] MEDS: LACTATED RINGERS 1,000 ML IV SCH (20:37)
[2025-02-15 20:48] LABS: Basophils # (A) 0.07 10*3/uL (0.00-0.10); Basophils % (A) 0.5 %; Eosinophils % (A) 0.7 %; HCT 46.3 % (37.2-46.3); HGB 15.1 g/dL (12.0-15.0); Lymphocytes # (A) 2.93 10*3/uL (0.90-5.00); Lymphocytes % (A) 20.2 %; MCHC 32.6 g/dL (32.0-37.0); MCV 88.9 fL (80.0-97.0); Mean Platelet Volume 10.8 fL (9.5-12.2); Monocytes # (A) 0.91 10*3/uL (0.20-1.00); Monocytes % (A) 6.3 %; Neutrophils # (A) 10.43 10*3/uL (1.80-7.70); Platelet Count 278 10*3/uL (140-440); RBC 5.21 10*6/uL (4.10-5.20); RDW 12.9 % (11.5-14.5); WBC 14.48 10*3/uL (4.50-10.00)
[2025-02-15 21:01] LABS: ALT 14 U/L (4-34); African American GFR (CKD) >90 (>60 ml/min/1.73 sqM); Anion Gap 11 mmol/L; Blood Urea Nitrogen 29 mg/dL (7-17); Calcium 9.6 mg/dL (8.4-10.2); Carbon Dioxide 24 mmol/L (22-30); Chloride 103 mmol/L (98-107); Glucose 172 mg/dL (74-99); Non-African American GFR(CKD) >90 (>60 ml/min/1.73 sqM); Sodium 138 mmol/L (137-145); Total Bilirubin 1.6 mg/dL (0.2-1.3)
[2025-02-15 21:07] LABS: Prothrombin Time 11.2 sec (10.0-12.5)
--- NOTE | 2025-02-15 21:11 | XR ---
EXAMINATION TYPE: XR chest 1V portable DATE OF EXAM: 02/15/2025 8:39 PM COMPARISON: 02/02/2025 CLINICAL INDICATION: Female, 64 years old with history of Fever, TECHNIQUE: XR chest 1V portable view(s) obtained. FINDINGS: The heart size is normal. The pulmonary vasculature is somewhat prominent. Streak opacities in the right lung base. Correlate for atelectasis. IMPRESSION: 1. Streaky atelectasis right lung base. Pneumonia is within the differential. 2. Mild increase in pulmonary vascular markings. Correlate for volume overload. [facility], , 02/15/2025 9:08 PM
[2025-02-15 21:16] LABS: Potassium 4.3 mmol/L (3.5-5.1)
[2025-02-15 21:17] LABS: AST 26 U/L (14-36); Albumin 4.1 g/dL (3.5-5.0); Alkaline Phosphatase 70 U/L (38-126); Total Protein 7.5 g/dL (6.3-8.2)
[2025-02-15 21:18] LABS: Partial Thromboplastin Time 19.5 sec (22.0-30.0)
--- NOTE | 2025-02-15 21:52 | ED ---
General Adult HPI - General Chief complaint: Altered Mental Status Stated complaint: Altered Mental Status Time Seen by Provider: 02/15/25 20:19 Source: EMS Mode of arrival: EMS Limitations: altered mental status - History of Present Illness Initial comments: Radha is a 64yo F presents to the emergency department today via For evaluation of altered mental status. Patient underwent an ACDF on February 11, she was doing well and discharged home on the . Family reports that since discharge home patient's been complaining of worsening pain in addition she has been laying in bed only got up to use the restroom, she has been refusing to eat and not drinking much. She has been taking her Ryder and baclofen [id number]. notes that she has been quite sleepy and not quite acting like herself which she attributed to the medications and not eating or drinking. reports that he was talking to her she was her usual self, daughter into the room and patient went to speak to the daughter daughter was worried the patient may be having a stroke and called 911. EMS arrived the patient was moving all extremities but answer 1 word sentences to the EMS crew and on of arrival here was awake alert speaking with us complaining of pain back and reporting that she does not feel well. - Related Data Home Medications Medication Instructions Recorded Confirmed Levothyroxine Sodium [Synthroid] 75 mcg PO DAILY 08/23/21 02/11/25 metFORMIN HCL [Glucophage] 1,000 mg PO BID 08/23/21 02/10/25 Atorvastatin [Lipitor] 80 mg PO DAILY 01/06/25 02/11/25 Ezetimibe [Zetia] 10 mg PO DAILY 01/06/25 02/11/25 Naproxen [Naprosyn] 500 mg PO BID PRN 01/06/25 02/10/25 glyBURIDE [Diabeta] 20 mg PO DAILY 01/06/25 02/10/25 Magnesium 200 mg PO DAILY 02/10/25 02/11/25 Semaglutide [Ozempic] 0.25 mg SQ MO 02/10/25 02/10/25 Previous Rx's Medication Instructions Recorded Aspirin 81 mg PO DAILY #30 tab 01/08/25 Baclofen 10 mg PO TID PRN #60 tab 02/12/25 HYDROcodone/APAP 5-325MG [Ryder 5] 1 each PO Q4HR PRN #42 tab 02/12/25 Allergies Allergy/AdvReac Type Severity Reaction Status Date / Time diazepam [From Valium] AdvReac Vomiting Verified 02/11/25 09:17 Review of Systems ROS Statement: Those systems with pertinent positive or pertinent negative responses have been documented in the HPI. ROS Other: All systems not noted in ROS Statement are negative. Past Medical History Past Medical History: CVA/TIA, Diabetes Mellitus, Hypertension, Osteoarthritis (OA), Rheumatoid Arthritis (RA), Thyroid Disorder Additional Past Medical History / Comment(s): hypothyroid, recent adm to [facility] for TIA in January-mostly no deficit, sometimes will forget a word, has never taken BP med, only elevated if "I'm worked up", gets infusions for RA, finished A/B for recent UTI History of Any Multi-Drug Resistant Organisms: MRSA Date of last positivie culture/infection: 12 yrs. ago MDRO Source:: foot & arm Past Surgical History: Appendectomy, Section, Tonsillectomy Past Anesthesia/Blood Transfusion Reactions: No Reported Reaction Past Psychological History: No Psychological Hx Reported Smoking Status: Former smoker Past Alcohol Use History: None Reported Past Drug Use History: None Reported - Past Family History Mother Family Medical History: No Reported History General Exam - General Exam Comments Initial Comments: Physical Exam GENERAL: Patient is well-developed and well-nourished. Dehydrated HENT: Normocephalic, Atraumatic. EYES: Pupils 3 mm sluggish PULMONARY: Unlabored respirations. CARDIOVASCULAR: Tachycardia, Regular ABDOMEN: Non-distended SKIN: Increased turgor Surgical incision in the anterior neck consistent with recent surgery no evidence of cellulitis : Deferred NEUROLOGIC: Alert and oriented person and place Speech is slow MUSCULOSKELETAL: Moving all extremities with no apparent injury PSYCHIATRIC: Agitated Limitations: altered mental status Course Vital Signs 02/15/25 02/15/25 02/16/25 20:13 22:06 00:21 Temperature 98.4 F Pulse Rate 112 H 101 H 107 H Respiratory 20 20 20 Rate Blood Pressure 161/97 162/91 159/85 O2 Sat by Pulse 92 L 94 L 94 L Oximetry 02/16/25 00:45 Temperature Pulse Rate 105 H Respiratory 18 Rate Blood Pressure 167/92 O2 Sat by Pulse 93 L Oximetry Medical Decision Making - Medical Decision Making Was pt. sent in by a medical professional or institution (JEFE Leung, [employer]NAGER, urgent care, hospital, or shelter...) When possible be specific @ -No Did you speak to anyone other than the patient for history (EMS, parent, family, police, friend...)? What history was obtained from this source @ -EMS, family Did you review nursing and triage notes (agree or disagree)? Why? @ -I reviewed and agree with nursing and triage notes Were old charts reviewed (outside hosp., previous admission, EMS record, old EKG, old radiological studies, urgent care reports/EKG's, shelter records)? Report findings @ -Previous hospitalization reviewed Differential Diagnosis (chest pain, altered mental status, abdominal pain women, abdominal pain men, vaginal bleeding, weakness, fever, dyspnea, syncope, hea dache, dizziness, GI bleed, back pain, seizure, CVA, palpatations, mental health)? @ -Differential Altered Mental Status: Hypoglycemia, DKA, hypercapnia, ETOH, overdose, CO poisoning, trauma, myxedema coma, HTN encephalopathy, infection, encephalitis, psychosis, intercranial hemorrhage, hepatic encephalopathy, meningitis, CVA, this is not meant to be an all-inclusive list EKG interpreted by me (3pts min.). @ -As above X-rays interpreted by me (1pt min.). @ -Chest x-ray with possible early pneumonia CT interpreted by me (1pt min.). @ -CT of the cervical spine with gas consistent with recent surgery no large fluid collections noted U/S interpreted by me (1pt. min.). @ -None done What testing was considered but not performed or refused? (CT, X-rays, U/S, labs)? Why? @ -None What meds were considered but not given or refused? Why? @ -None Did you discuss the management of the patient with other professionals (professionals i.e. JEFE Leung, [employer] MANAGER, lab, RT, psych nurse, manager social work, system manager, teacher, credit risk officer, case manager specialist)? Give summary @ -With admitting physician Dr. Hagan Was smoking cessation discussed for >3mins.? @ -No Was critical care preformed (if so, how long)? @ -No Were there social determinants of health that impacted care today? How? (Homelessness, low income, unemployed, alcoholism, drug addiction, transportation, low edu. Level, literacy, decrease access to med. care, correction, rehab)? @ -No Was there de-escalation of care discussed even if they declined (Discuss DNR or withdrawal of care, Hospice)? DNR status @ -No What co-morbidities impacted this encounter? (DM, HTN, Smoking, COPD, CAD, Cancer, CVA, ARF, Chemo, Hep., AIDS, mental health diagnosis, sleep apnea, morbid obesity)? @ -None Was patient admitted / discharged? Hospital course, mention meds given and route, prescriptions, significant lab abnormalities, going to OR and other pertinent info. @ -Admit Patient was seen and evaluated, history was obtained from EMS, medical record and family Patient appears to be under the influence of narcotics but there is no respiratory distress or depression therefore we will not give Narcan due to need for pain management Labs and imaging were obtained patient has leukocytosis and evidence of pneumonia Patient is afebrile lactic acid is not elevated The antibiotics were ordered for pneumonia Patient condition was discussed with family at bedside who request the patient be admitted for pain management and further evaluation as she is not acting like herself though 1 daughter does express concern patient has been taking extra baclofen Patient care was discussed with Dr. Hagan agrees with plan for admission with consult to Dr Saini Undiagnosed new problem with uncertain prognosis? @ -No Drug Therapy requiring intensive monitoring for toxicity (Heparin, Nitro, Insulin, Cardizem)? @ -No Were any procedures done? @ -No Diagnosis/symptom? @ -Pneumonia Acute, or Chronic, or Acute on Chronic? @ -Acute Uncomplicated (without systemic symptoms) or Complicated (systemic symptoms)? @ -Default Side effects of treatment? @ -No Exacerbation, Progression, or Severe Exacerbation? @ -No Poses a threat to life or bodily function? How? (Chest pain, [place], [place], pneumonia, PE, COPD, DKA, ARF, appy, cholecystitis, CVA, Diverticulitis, Homicidal, Suicidal, threat to staff... and all critical care pts) @ -Unlikely Diagnosis/symptom? @ -Metabolic encephalopathy likely related to polypharmacy Acute, or Chronic, or Acute on Chronic? @ -Acute Uncomplicated (without systemic symptoms) or Complicated (systemic symptoms)? @ -Default Side effects of treatment? @ -None Exacerbation, Progression, or Severe Exacerbation] @ -No Poses a threat to life or bodily function? @ -Unlikely - Lab Data Result diagrams: 02/15/25 20:31 02/15/25 20:31 Lab Results 02/15/25 02/15/25 02/15/25 Range/Units 20:17 20:31 20:31 WBC 14.48 H (4.50-10.00) 10*3/uL RBC 5.21 H (4.10-5.20) 10*6/uL Hgb 15.1 H (12.0-15.0) g/dL Hct 46.3 (37.2-46.3) % MCV 88.9 (80.0-97.0) fL MCH 29.0 (27.0-32.0) pg MCHC 32.6 (32.0-37.0) g/dL Plt Count 278 (140-440) 10*3/uL MPV 10.8 (9.5-12.2) fL Immature Gran % (Auto) 0.3 % Neutrophils % 72.0 % Lymphocytes % 20.2 % Monocytes % 6.3 % Eosinophils % 0.7 % Basophils % 0.5 % Immature Gran # 0.04 (0.00-0.04) 10*3/uL Neutrophils # 10.43 H (1.80-7.70) 10*3/uL Lymphocytes # 2.93 (0.90-5.00) 10*3/uL Monocytes # 0.91 (0.20-1.00) 10*3/uL Eosinophils # 0.10 (0.04-0.35) 10*3/uL Basophils # 0.07 (0.00-0.10) 10*3/uL PT 11.2 (10.0-12.5) sec INR 1.0 (<1.2) APTT 19.5 L (22.0-30.0) sec Sodium (137-145) mmol/L Potassium (3.5-5.1) mmol/L Chloride (98-107) mmol/L Carbon Dioxide (22-30) mmol/L Anion Gap mmol/L BUN (7-17) mg/dL Creatinine (0.52-1.04) mg/dL Est GFR (CKD-EPI)AfAm (>60 ml/min/1.73 sqM) Est GFR (CKD-EPI)NonAf (>60 ml/min/1.73 sqM) Glucose (74-99) mg/dL POC Glucose (mg/dL) 158 H (70-110) mg/dL POC Glu [place] Operator ID Brandon Storm Plasma Lactic Acid Gilberto (0.7-2.0) mmol/L Calcium (8.4-10.2) mg/dL Total Bilirubin (0.2-1.3) mg/dL AST (14-36) U/L ALT (4-34) U/L Alkaline Phosphatase (38-126) U/L Total Protein (6.3-8.2) g/dL Albumin (3.5-5.0) g/dL 02/15/25 02/15/25 Range/Units 20:31 20:31 WBC (4.50-10.00) 10*3/uL RBC (4.10-5.20) 10*6/uL Hgb (12.0-15.0) g/dL Hct (37.2-46.3) % MCV (80.0-97.0) fL MCH (27.0-32.0) pg MCHC (32.0-37.0) g/dL Plt Count (140-440) 10*3/uL MPV (9.5-12.2) fL Immature Gran % (Auto) % Neutrophils % % Lymphocytes % % Monocytes % % Eosinophils % % Basophils % % Immature Gran # (0.00-0.04) 10*3/uL Neutrophils # (1.80-7.70) 10*3/uL Lymphocytes # (0.90-5.00) 10*3/uL Monocytes # (0.20-1.00) 10*3/uL Eosinophils # (0.04-0.35) 10*3/uL Basophils # (0.00-0.10) 10*3/uL PT (10.0-12.5) sec INR (<1.2) APTT (22.0-30.0) sec Sodium 138 (137-145) mmol/L Potassium 4.3 (3.5-5.1) mmol/L Chloride 103 (98-107) mmol/L Carbon Dioxide 24 (22-30) mmol/L Anion Gap 11 mmol/L BUN 29 H (7-17) mg/dL Creatinine 0.59 (0.52-1.04) mg/dL Est GFR (CKD-EPI)AfAm >90 (>60 ml/min/1.73 sqM) Est GFR (CKD-EPI)NonAf >90 (>60 ml/min/1.73 sqM) Glucose 172 H (74-99) mg/dL POC Glucose (mg/dL) (70-110) mg/dL POC Glu [place] Operator ID Plasma Lactic Acid Gilberto 1.7 (0.7-2.0) mmol/L Calcium 9.6 (8.4-10.2) mg/dL Total Bilirubin 1.6 H (0.2-1.3) mg/dL AST 26 (14-36) U/L ALT 14 (4-34) U/L Alkaline Phosphatase 70 (38-126) U/L Total Protein 7.5 (6.3-8.2) g/dL Albumin 4.1 (3.5-5.0) g/dL Disposition Clinical Impression: Delirium due to general medical condition, Pneumonia, Polypharmacy, Alcoholic intoxication Disposition: ADMITTED IP TO THIS [facility] Condition: Stable Is patient prescribed a controlled substance at d/c from ED?: No
[2025-02-15] MEDS: cefTRIAXone IN SWFI 1,000 MG/10 ML SYRINGE IVP STA (21:58)
[2025-02-15] MEDS: AZITHROMYCIN 500 MG in SODIUM CHLORIDE 0.9% 250 ML IVPB STA (22:01)
[2025-02-16] MEDS: MORPHINE SULFATE 4 MG/ML SYRINGE IVP STA (00:12)
[2025-02-16] MEDS ORDERED: NALOXONE 0.4 MG/ML 1 ML VIAL IV PRN (00:20)
[2025-02-16] MEDS ORDERED: MORPHINE SULFATE 4 MG/ML SYRINGE IV PRN (00:20)
--- NOTE | 2025-02-16 00:34 | CT ---
EXAM: CT Cervical Spine With Intravenous Contrast CLINICAL HISTORY: CT Reason: post op pain TECHNIQUE: Axial computed tomography images of the cervical spine with intravenous contrast. CTDI is 9.8 mGy and DLP is 316.1 mGy-cm. This CT exam was performed using one or more of the following dose reduction techniques: automated exposure control, adjustment of the mA and/or kV according to patient size, and/or use of iterative reconstruction technique. COMPARISON: No relevant prior studies available. FINDINGS: Vertebrae: Narrowing and osteophytosis at the atlantodental joint. The odontoid process is intact. No acute fracture. Soft tissues: Unremarkable. Vasculature: Surgical changes status post discectomy and fusion with plate and screws extending from C3-C7. The bone graft plugs and hardware are in standard position. Retropharyngeal space: Edema and gas in the prevertebral/retropharyngeal space measuring 1.5 cm thick consistent with recent surgery. No rim-enhancing fluid collection is seen. Lung apices: Small amount of dependent atelectasis in the bases portion of both lungs. DISCS/SPINAL CANAL/NEURAL FORAMINA: C2-C3: Mild degenerative disc disease. No stenosis. C3-C4: Recent discectomy and fusion. No stenosis. C4-C5: Recent discectomy and fusion. No stenosis. C5-C6: Recent discectomy and fusion. No stenosis. C6-C7: Recent discectomy and fusion. No stenosis. C7-T1: Mild degenerative disc disease. No stenosis. IMPRESSION: 1. Edema and gas in the prevertebral/retropharyngeal space measuring 1.5 cm thick consistent with recent surgery. No rim-enhancing fluid collection is seen. Correlate with the timing of surgery to differentiate between normal postoperative gas versus abscess. 2. Surgical changes status post discectomy and fusion with plate and screws extending from C3-C7. The bone graft plugs and hardware are in standard position.
[2025-02-16] MEDS: HYDROcodone/APAP 5-325MG 1 EACH TAB PO PRN (02:18)
[2025-02-16] MEDS ORDERED: DEXTROSE 50% SYRINGE 50 ML IVP PRN ×2 (10:17)
[2025-02-16] MEDS ORDERED: NON FORMULARY DRUG (Semaglutide [Ozempic] 0.25 MG/0.368 ML Pen.Injctr) SQ SCH (10:30)
[2025-02-16 11:16] LABS: Glucose,Whole Blood 172 mg/dL (70-110)
[2025-02-16 11:25] LABS: Appearance,Urine Clear (Clear); Bilirubin,Urine Negative (Negative); Blood,Urine Negative (Negative); Color,Urine Yellow; Glucose,Urine (UA) 1+ (Negative); Leukocyte Esterase,Urine Small (Negative); Mucus,Urine Rare /hpf; Nitrite,Urine Negative (Negative); Protein,Urine Trace (Negative); RBC,Urine 4 /hpf (0-5); Specific Gravity,Urine 1.042 (1.001-1.035); Squamous Epithelial Cell,Urine 2 /hpf (0-4); Urobilinogen,Urine <2.0 mg/dL (<2.0); WBC,Urine 7 /hpf (0-5)
[2025-02-16 12:15] LABS: Ketones,Urine 3+ (Negative)
--- NOTE | 2025-02-16 12:52 | P.CNOR ---
History of Present Illness - HPI History of present illness: Patient is a very pleasant 64-year-old female well-known to our service who is seen and examined at bedside for follow-up evaluation of her cervical spine. She is status post C3-4, C4-5, C5-6, and C6-7 anterior cervical decompression and fusion performed on 02/11/2025. She was discharged home the next day without significant difficulty. She was brought back to the emergency department by her family for altered mental status. Patient is able to tell me where she is at but does admit to some confusion. She is unsure why she is confused. CT imaging of the cervical spine was performed. Patient does continue to have pain radiating over her trapezius bilaterally. This was present at the time of discharge postoperatively. She is known to have significant changes at her anterior cervical spine with cervical myelopathy and cervical myelomalacia. She does have upper extremity weakness and radiculopathy. She continues to utilize soft cervical collar. Her postoperative dressing remains intact. She is not experiencing any neurologic change in her upper extremities. She is able to perform good range of motion of her upper extremities. She is admitted to medicine. She does have elevated WBC. She also has apparent urinary tract infection based on UA results. Past Medical History Past Medical History: CVA/TIA, Diabetes Mellitus, Hypertension, Osteoarthritis (OA), Rheumatoid Arthritis (RA), Thyroid Disorder Additional Past Medical History / Comment(s): hypothyroid, recent adm to [facility] for TIA in January-mostly no deficit, sometimes will forget a word, has never taken BP med, only elevated if "I'm worked up", gets infusions for RA, finished A/B for recent UTI History of Any Multi-Drug Resistant Organisms: MRSA Year Discovered:: 12 yrs. ago MDRO Source:: foot & arm Past Surgical History: Appendectomy, Section, Tonsillectomy Additional Past Surgical History / Comment(s): 02/11/25 anterior cervical Past Anesthesia/Blood Transfusion Reactions: No Reported Reaction Past Psychological History: No Psychological Hx Reported Smoking Status: Former smoker Past Alcohol Use History: None Reported Additional Past Alcohol Use History / Comment(s): quit smoking >30 yrs. ago, off & on for 10 yrs. <ppd Past Drug Use History: None Reported - Past Family History Mother Family Medical History: No Reported History Medications and Allergies Home Medications Medication Instructions Recorded Confirmed Type Levothyroxine Sodium [Synthroid] 75 mcg PO DAILY 08/23/21 02/16/25 History metFORMIN HCL [Glucophage] 1,000 mg PO BID 08/23/21 02/16/25 History Atorvastatin [Lipitor] 80 mg PO DAILY 01/06/25 02/16/25 History Ezetimibe [Zetia] 10 mg PO DAILY 01/06/25 02/16/25 History Naproxen [Naprosyn] 500 mg PO BID PRN 01/06/25 02/16/25 History glyBURIDE [Diabeta] 20 mg PO DAILY 01/06/25 02/16/25 History Aspirin 81 mg PO DAILY #30 tab 01/08/25 02/16/25 Rx Magnesium 400 mg PO DAILY 02/10/25 02/16/25 History Semaglutide [Ozempic] 0.25 mg SQ MO 02/10/25 02/16/25 History Baclofen 10 mg PO TID PRN #60 tab 02/12/25 02/16/25 Rx HYDROcodone/APAP 5-325MG [[place] 5] 1 tab PO Q4HR PRN 02/16/25 02/16/25 History Omeprazole 40 mg PO DAILY 02/16/25 02/16/25 History Allergies Allergy/AdvReac Type Severity Reaction Status Date / Time diazepam [From Valium] AdvReac Vomiting Verified 02/16/25 08:50 Physical Examination Physical exam: Patient is awake, alert, and oriented 3 and is able to answer questions but is admittedly confused Vital signs stable Good chest excursion with deep inspiration and expiration Examination of the cervical spine reveals skin is intact with no abrasions, lacerations, or bruises; no erythema, purulence or signs of infection Adequate range of motion of the cervical spine with adequate flexion, extension, and bilateral rotation Jig Box Operator strength, thumb strength, interosseous strength, biceps strength, triceps strength, and shoulder strength positive sustained bilaterally Upper extremity strength 5/5 bilaterally Soft cervical collar is removed during physical examination Optifoam dressing is intact and is removed at the bedside Mild generalized swelling of the anterior cervical spine Evidence of some bruising around the surgical site at the cervical spine and most significant towards the right No significant pain with palpation around the surgical incision site Surgical incision site is clean, dry, and intact Results Pertinent studies: CT of the cervical spine taken on 02/16/2025: Evidence of C3-4, C4-5, C5-6, and C6-7 anterior cervical decompression and fusion which hardware remains intact and appears to be in good alignment in good position; C2-3 mild degenerative disc disease; edema and gas in the paravertebral/retropharyngeal space measuring 1.5 cm thick consistent with recent surgery with no rim-enhancing fluid collection seen - Labs Labs: Abnormal Lab Results - Last 24 Hours (Table) 02/15/25 02/15/25 02/15/25 Range/Units 20:17 20:31 20:31 WBC 14.48 H (4.50-10.00) 10*3/uL RBC 5.21 H (4.10-5.20) 10*6/uL Hgb 15.1 H (12.0-15.0) g/dL Neutrophils # 10.43 H (1.80-7.70) 10*3/uL APTT 19.5 L (22.0-30.0) sec BUN (7-17) mg/dL Glucose (74-99) mg/dL POC Glucose (mg/dL) 158 H (70-110) mg/dL Total Bilirubin (0.2-1.3) mg/dL Ur Specific [place] (1.001-1.035) Urine Protein (Negative) Urine Glucose (UA) (Negative) Urine Ketones (Negative) Ur Leukocyte Esterase (Negative) Urine WBC (0-5) /hpf Urine Mucus (None) /hpf 02/15/25 02/16/25 02/16/25 Range/Units 20:31 10:59 11:11 WBC (4.50-10.00) 10*3/uL RBC (4.10-5.20) 10*6/uL Hgb (12.0-15.0) g/dL Neutrophils # (1.80-7.70) 10*3/uL APTT (22.0-30.0) sec BUN 29 H (7-17) mg/dL Glucose 172 H (74-99) mg/dL POC Glucose (mg/dL) 172 H (70-110) mg/dL Total Bilirubin 1.6 H (0.2-1.3) mg/dL Ur Specific [place] 1.042 H (1.001-1.035) Urine Protein Trace H (Negative) Urine Glucose (UA) 1+ H (Negative) Urine Ketones 3+ H (Negative) Ur Leukocyte Esterase Small H (Negative) Urine WBC 7 H (0-5) /hpf Urine Mucus Rare H (None) /hpf H & H 02/15/25 Range/Units 20:31 Hgb 15.1 H (12.0-15.0) g/dL Hct 46.3 (37.2-46.3) % Coagulation 02/15/25 Range/Units 20:31 INR 1.0 (<1.2) Result Diagrams: 02/15/25 20:31 02/15/25 20:31 Assessment and Plan Assessment: Assessment: Status post C3-4, C4-5, C5-6, and C6-7 anterior cervical decompression and f usion performed on 02/11/2025 Bilateral trapezius pain Altered mental status Leukocytosis Urinary tract infection Cervicalgia Cervical myelomalacia Cervical myelopathy Diabetes mellitus Hypertension Rheumatoid arthritis Upper extremity weakness and radiculopathy (1) Urinary tract infection Current Visit: Yes Status: Acute Code(s): N39.0 - URINARY TRACT INFECTION, SITE NOT SPECIFIED SNOMED Code(s): 34683322 (2) Leukocytosis Current Visit: Yes Status: Acute Code(s): D72.829 - ELEVATED WHITE BLOOD CELL COUNT, UNSPECIFIED SNOMED Code(s): 032624993 (3) AMS (altered mental status) Current Visit: No Status: Acute Code(s): R41.82 - ALTERED MENTAL STATUS, UNSPECIFIED SNOMED Code(s): 273788782 (4) Cervical cord myelomalacia Current Visit: No Status: Acute Code(s): G95.89 - OTHER SPECIFIED DISEASES OF SPINAL CORD SNOMED Code(s): 27825465 (5) Cervical myelopathy Current Visit: No Status: Acute Code(s): G95.9 - DISEASE OF SPINAL CORD, UNSPECIFIED SNOMED Code(s): 019229908 (6) Cervical stenosis of spinal canal Current Visit: No Status: Acute Code(s): M48.02 - SPINAL STENOSIS, CERVICAL REGION SNOMED Code(s): 87748050 (7) Cervicalgia Current Visit: No Status: Acute Code(s): M54.2 - CERVICALGIA SNOMED Code(s): 71355077 (8) Degenerative disc disease, cervical Current Visit: No Status: Acute Code(s): M50.30 - OTHER CERVICAL DISC DEGENERATION, UNSP CERVICAL REGION SNOMED Code(s): 83128215 (9) Diabetes mellitus Current Visit: No Status: Acute Code(s): E11.9 - TYPE 2 DIABETES MELLITUS WITHOUT COMPLICATIONS SNOMED Code(s): 68029372 (10) Hyperreflexia Current Visit: No Status: Acute Code(s): R29.2 - ABNORMAL REFLEX SNOMED Code(s): 21227490 (11) Hypertension Current Visit: No Status: Acute Code(s): I10 - ESSENTIAL (PRIMARY) HYPERTENSION SNOMED Code(s): 01719731 (12) Radiculopathy affecting upper extremity Current Visit: No Status: Acute Code(s): M54.10 - RADICULOPATHY, SITE UNSPECIFIED SNOMED Code(s): 05217723 (13) Rheumatoid arthritis Current Visit: No Status: Acute Code(s): M06.9 - RHEUMATOID ARTHRITIS, UNSPECIFIED SNOMED Code(s): 24017254 (14) Status post cervical spinal fusion Current Visit: No Status: Acute Code(s): Z98.1 - ARTHRODESIS STATUS SNOMED Code(s): 7923817410752 (15) Upper extremity weakness Current Visit: No Status: Acute Code(s): R29.898 - OTH SYMPTOMS AND SIGNS INVOLVING THE MUSCULOSKELETAL SYSTEM SNOMED Code(s): 664635972 Plan: Plan: Patient presented with altered mental status. She does have elevated WBC and apparent urinary tract infection. She has been seen by medicine. Medicine is currently planning to obtain brain CT imaging. Reviewing of cervical CT imaging shows Evidence of C3-4, C4-5, C5-6, and C6-7 anterior cervical decompression and fusion which hardware remains intact and appears to be in good alignment in good position; C2-3 mild degenerative disc disease; edema and gas in the paravertebral/retropharyngeal space measuring 1.5 cm thick consistent with recent surgery with no rim-enhancing fluid collection seen. Dressing has been removed at her anterior cervical spine. Surgical site is clean, dry, and intact. There is some mild swelling. There is no pain with palpation over the surgical site. She does have some bruising around her cervical spine most significant towards the right. She is answering questions appropriately but does admit to some ongoing confusion. She does continue to have some pain over her trapezius bilaterally, which was present postoperatively and present at the time of discharge. Currently, given her altered mental status, I would not plan for narcotic and sedative medications. I would plan for pain control per the recommendations of medicine. Patient is currently undergoing further workup and evaluation with medicine for her altered mental status. Patient will be discussed in significant detail with Dr. Alexander Saini. The patient is not experiencing any neurological decline. She has good range of motion of her upper extremities. Her surgical incision site at the cervical spine shows no obvious sign of infection. Patient is answering questions at the bedside. I do not think patient needs further imaging in regards to her cervical spine following CT scan of the cervical spine. Her dressing has been removed to the anterior cervical spine. She does not need a dressing at this time. She may utilize a soft collar for comfort and support as needed. I do not think the patient has obvious infection. Currently, we would plan to continue conservative treatment and further workup with medicine due to her altered mental status. Time with Patient: Greater than 30 (Including obtaining history, physical examination, reviewing of imaging, and dictation.)
[2025-02-16] MEDS: LACTATED RINGERS 1,000 ML IV SCH (13:06)
--- NOTE | 2025-02-16 13:43 | CT ---
EXAMINATION TYPE: CT brain wo con DATE OF EXAM: 02/16/2025 1:16 PM COMPARISON: 01/05/2025 CLINICAL INDICATION: Female, 64 years old with history of altered mental status, AMS TECHNIQUE: CT of the brain is performed utilizing 3 mm thick sections through the posterior fossa and 3 mm thick sections through the remaining calvarium. Study is performed within 24 hours of arrival to the hospital. Contrast used: mL of , (none if empty) CT DLP: 1127.4 mGycm, Automated exposure control for dose reduction was used. FINDINGS: No abnormal hyperdensity is present to suggest an acute intracranial hemorrhage. No mass lesion is evident. No acute infarcts are evident. Ventricles and sulci are appropriate for the patient age. Scattered retention cysts within the maxillary sinuses. Remaining paranasal sinuses and mastoid air c ells are clear. Hyperostosis frontalis internus is present. IMPRESSION: 1. No acute intracranial process. Follow up MRI can be performed as clinically indicated. [facility], , 02/16/2025 1:41 PM
[2025-02-16] MEDS: INSULIN LISPRO (HumaLOG) 100 UNIT/ML 10 mL VL SQ SCH (14:51)
[2025-02-16] MEDS: LEVOTHYROXINE 75 MCG TAB PO SCH (15:03)
[2025-02-16] MEDS: ASPIRIN 81 MG PO SCH (15:03)
[2025-02-16] MEDS: EZETIMIBE 10 MG TAB PO SCH (15:03)
[2025-02-16] MEDS: ATORVASTATIN 80 MG TAB PO SCH (15:03)
[2025-02-16] MEDS: PANTOPRAZOLE 40 MG TABLET PO SCH (15:04)
[2025-02-16] MEDS: ENOXAPARIN 40 MG/0.4 ML SYRINGE SQ SCH (15:04)
[2025-02-16] MEDS: metFORMIN 500 MG TAB PO SCH (15:08)
[2025-02-16] MEDS: glipiZIDE 5 MG TAB PO SCH (16:13)
[2025-02-16 16:37] VITALS: BMI 37.8
[2025-02-16 16:58] LABS: Glucose,Whole Blood 140 mg/dL (70-110)
--- NOTE | 2025-02-16 19:50 | P.HPIM ---
History of Present Illness H&P Date: 02/16/25 Chief Complaint: Altered mentation This is a 64-year-old patient who follows Dr. Bartolo Garcia. Chronic medical conditions include diabetes, hypertension, osteoarthritis, rheumatoid arthritis, hypothyroid. History of TIA with no deficits. On February 11 patient underwent surgical intervention for severe cervical stenosis C3-C7 cervical myelomalacia cervical myelopathy low breathy upper extremity weakness disc herniation DJD. Patient was discharged on February 12. Patient's 2 daughters at bedside. And other family members. Daughters give history. When patient left she was tolerating a diet. Pain was reasonably well-controlled. She did well when she came home. Pulmonary evening she started complaining increasing pain across the shoulder and spasms. And since then patient has barely eaten. Complaining of significant pain. No fever reported. When I asked the patient's questions she can answer simple questions. But slow to speak. CT scan in the ER on the cervical spine did not show anything new. Dr. Saini ordered the surgery was consulted. Review of systems patient could not say much see history from family members above Social history: Patient smoked less than a pack a day for 10 years more than 30 years ago. 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 Lives with her and grandson. Physical examination: VITAL SIGNS: 98.4, 912, 20, 161 x 97, 92% room air upon presentation GENERAL: BMI 37.8, laying in bed,. Eyes open. Appears a bit distant. EYES: Pupils equal. Conjunctiva rebecca l. HEENT: External appearance of nose and ears normal, oral cavity grossly normal. NECK: JVD unable to assess; masses not palpable. Incision sites noted. HEART: First and second heart sounds are normal; no edema. LUNGS: Respiratory rate normal; clear to auscultation. ABDOMEN: Soft, nontender, liver spleen not palpable, no masses palpable. PSYCH: Patient is answering questions very slowly. l. Decreased wakefulness MUSCULOSKELETAL: Evidence of OA in the hands. Able to move the arms a little bit. Legs adequate. NEUROLOGICAL: Cranial nerves grossly intact; no facial asymmetry, able to move the arms very slowly little bit. Same with the legs. Some hyperreflexia in the legs. LYMPHATICS: No lymph nodes palpable in the axilla and neck INVESTIGATIONS, reviewed in the clinical context: February 15, 2025: White count 14.4 hemoglobin 15.1 platelets 278 sodium 138 potassium 4.3 BUN 29 creatinine 0.59 UA: Protein trace glucose 1+ ketones 3+ nitrite negative Chest x-ray film personally reviewed by me-streaky atelectasis Cervical spine CT: Edema and gas in the prevertebral retropharyngeal space measuring 1.5 cm consistent with recent surgery. No rim-enhancing fluid collection is seen. Other postsurgical changes. Assessment plan: - Acute metabolic encephalopathy/delirium Patient is not eaten for 4 days. Clinically also dehydrated. Also patient been getting [place] at home. Along with baclofen. All this could be confounding factors. Hold baclofen. Will also DC morphine for now. - Status post cervical spine surgery on February [address] Saini. Patient is complaining increased pain in the site. CT scan of the spine showed postoperative changes. Dr. Saini has been consulted and his team saw the patient earlier today. - Leukocytosis. This most likely is from volume contraction. Infection entirely cannot be ruled out at the surgical site.. But there is no fever. Orthopedic team following Patient has no respiratory symptoms. No hypoxia. No evidence of UTI - Diabetes mellitus type 2 on oral hypoglycemic For right now stop glyburide. Follow Accu-Cheks with sliding scale. - Hyperlipidemia Lipitor. Zetia. - Hypothyroid Synthroid 75 mcg a day - GERD Omeprazole - Postoperative cervical spine pain. Will stop morphine because of altered mentation. Also hold off baclofen. Naproxen 250, 3 times daily for anti-inflammatory effect. Continue with Bradford - Dehydration causing ketonuria and from decreased oral intake IV fluids - Chronic rheumatoid arthritis, osteoarthritis - Full code Had a lengthy discussion with patient's family at the bedside. Did order CT scan of the brain there with no focalizing signs. Neurology consultation was done. Follow-up with surgery. Given the complexity and severity of patient's condition expect the patient to be in the hospital at least for 2 overnights Past Medical History Past Medical History: CVA/TIA, Diabetes Mellitus, Hypertension, Osteoarthritis (OA), Rheumatoid Arthritis (RA), Thyroid Disorder Additional Past Medical History / Comment(s): hypothyroid, recent adm to [facility] for TIA in January-mostly no deficit, sometimes will forget a word, has never taken BP med, only elevated if "I'm worked up", gets infusions for RA, finished A/B for recent UTI History of Any Multi-Drug Resistant Organisms: MRSA Date of last positivie culture/infection: 12 yrs. ago MDRO Source:: foot & arm Past Surgical History: Appendectomy, Section, Tonsillectomy Additional Past Surgical History / Comment(s): 02/11/25 anterior cervical Past Anesthesia/Blood Transfusion Reactions: No Reported Reaction Past Psychological History: No Psychological Hx Reported Smoking Status: Former smoker Past Alcohol Use History: None Reported Additional Past Alcohol Use History / Comment(s): quit smoking >30 yrs. ago, off & on for 10 yrs. <ppd Past Drug Use History: None Reported - Past Family History Mother Family Medical History: No Reported History Medications and Allergies Home Medications Medication Instructions Recorded Confirmed Type Levothyroxine Sodium [Synthroid] 75 mcg PO DAILY 08/23/21 02/16/25 History metFORMIN HCL [Glucophage] 1,000 mg PO BID 08/23/21 02/16/25 History Atorvastatin [Lipitor] 80 mg PO DAILY 01/06/25 02/16/25 History Ezetimibe [Zetia] 10 mg PO DAILY 01/06/25 02/16/25 History Naproxen [Naprosyn] 500 mg PO BID PRN 01/06/25 02/16/25 History glyBURIDE [Diabeta] 20 mg PO DAILY 01/06/25 02/16/25 History Aspirin 81 mg PO DAILY #30 tab 01/08/25 02/16/25 Rx Magnesium 400 mg PO DAILY 02/10/25 02/16/25 History Semaglutide [Ozempic] 0.25 mg SQ MO 02/10/25 02/16/25 History Baclofen 10 mg PO TID PRN #60 tab 02/12/25 02/16/25 Rx HYDROcodone/APAP 5-325MG [[place] 5] 1 tab PO Q4HR PRN 02/16/25 02/16/25 History Omeprazole 40 mg PO DAILY 02/16/25 02/16/25 History Allergies Allergy/AdvReac Type Severity Reaction Status Date / Time diazepam [From Valium] AdvReac Vomiting Verified 02/16/25 08:50 Physical Exam Vitals: Vital Signs Temp Pulse Pulse Resp BP BP Pulse Ox 02/16/25 13:57 97.5 F L 98 19 151/94 92 L 02/16/25 07:52 97.8 F 105 H 20 166/88 92 L 02/16/25 00:45 105 H 18 167/92 93 L 02/16/25 00:21 107 H 20 159/85 94 L 02/15/25 22:06 101 H 20 162/91 94 L 02/15/25 20:13 98.4 F 112 H 20 161/97 92 L Intake and Output 02/16/25 02/16/25 02/16/25 06:59 14:59 22:59 Other: # Voids 1 6 Weight 99.79 kg 99.79 kg Results CBC & Chem 7: 02/15/25 20:31 02/15/25 20:31 Labs: Abnormal Lab Results - Last 24 Hours (Table) 02/15/25 02/15/25 02/15/25 Range/Units 20:17 20:31 20:31 WBC 14.48 H (4.50-10.00) 10*3/uL RBC 5.21 H (4.10-5.20) 10*6/uL Hgb 15.1 H (12.0-15.0) g/dL Neutrophils # 10.43 H (1.80-7.70) 10*3/uL APTT 19.5 L (22.0-30.0) sec BUN (7-17) mg/dL Glucose (74-99) mg/dL POC Glucose (mg/dL) 158 H (70-110) mg/dL Total Bilirubin (0.2-1.3) mg/dL Ur Specific [place] (1.001-1.035) Urine Protein (Negative) Urine Glucose (UA) (Negative) Urine Ketones (Negative) Ur Leukocyte Esterase (Negative) Urine WBC (0-5) /hpf Urine Mucus (None) /hpf 02/15/25 02/16/25 02/16/25 Range/Units 20:31 10:59 11:11 WBC (4.50-10.00) 10*3/uL RBC (4.10-5.20) 10*6/uL Hgb (12.0-15.0) g/dL Neutrophils # (1.80-7.70) 10*3/uL APTT (22.0-30.0) sec BUN 29 H (7-17) mg/dL Glucose 172 H (74-99) mg/dL POC Glucose (mg/dL) 172 H (70-110) mg/dL Total Bilirubin 1.6 H (0.2-1.3) mg/dL Ur Specific [place] 1.042 H (1.001-1.035) Urine Protein Trace H (Negative) Urine Glucose (UA) 1+ H (Negative) Urine Ketones 3+ H (Negative) Ur Leukocyte Esterase Small H (Negative) Urine WBC 7 H (0-5) /hpf Urine Mucus Rare H (None) /hpf 02/16/25 Range/Units 16:56 WBC (4.50-10.00) 10*3/uL RBC (4.10-5.20) 10*6/uL Hgb (12.0-15.0) g/dL Neutrophils # (1.80-7.70) 10*3/uL APTT (22.0-30.0) sec BUN (7-17) mg/dL Glucose (74-99) mg/dL POC Glucose (mg/dL) 140 H (70-110) mg/dL Total Bilirubin (0.2-1.3) mg/dL Ur Specific [place] (1.001-1.035) Urine Protein (Negative) Urine Glucose (UA) (Negative) Urine Ketones (Negative) Ur Leukocyte Esterase (Negative) Urine WBC (0-5) /hpf Urine Mucus (None) /hpf Thrombosis Risk Factor Assmnt - Choose All That Apply Any of the Below Risk Factors Present?: Yes Each Factor Represents 1 point: Obesity (BMI >25) Other Risk Factors: Yes Each Risk Factor Represents 2 Points: Age 61-74 years Each Risk Factor Represents 3 Points: Positive Lupus Anticoagulant Thrombosis Risk Factor Assessment Total Risk Factor Score: 6 Thrombosis Risk Factor Assessment Level: High Risk
[2025-02-16] MEDS: NAPROXEN 250 MG TAB PO SCH (20:25)
[2025-02-16 20:48] LABS: Basophils # (A) 0.07 10*3/uL (0.00-0.10); Basophils % (A) 0.6 %; Eosinophils # (A) 0.23 10*3/uL (0.04-0.35); Eosinophils % (A) 1.8 %; HCT 39.6 % (37.2-46.3); HGB 12.8 g/dL (12.0-15.0); Lymphocytes # (A) 2.65 10*3/uL (0.90-5.00); Lymphocytes % (A) 21.3 %; MCH 28.8 pg (27.0-32.0); MCHC 32.3 g/dL (32.0-37.0); MCV 89.2 fL (80.0-97.0); Mean Platelet Volume 10.7 fL (9.5-12.2); Monocytes # (A) 0.84 10*3/uL (0.20-1.00); Monocytes % (A) 6.7 %; Neutrophils # (A) 8.63 10*3/uL (1.80-7.70); Neutrophils % (A) 69.3 %; Platelet Count 244 10*3/uL (140-440); RBC 4.44 10*6/uL (4.10-5.20); WBC 12.46 10*3/uL (4.50-10.00)
[2025-02-16 20:57] LABS: Glucose,Whole Blood 141 mg/dL (70-110)
[2025-02-17 04:01] LABS: Basophils # (A) 0.06 10*3/uL (0.00-0.10); Basophils % (A) 0.6 %; Eosinophils # (A) 0.38 10*3/uL (0.04-0.35); Eosinophils % (A) 3.6 %; HCT 38.9 % (37.2-46.3); HGB 12.6 g/dL (12.0-15.0); Lymphocytes # (A) 3.41 10*3/uL (0.90-5.00); Lymphocytes % (A) 32.5 %; MCH 29.1 pg (27.0-32.0); MCHC 32.4 g/dL (32.0-37.0); MCV 89.8 fL (80.0-97.0); Mean Platelet Volume 10.8 fL (9.5-12.2); Monocytes # (A) 0.77 10*3/uL (0.20-1.00); Monocytes % (A) 7.3 %; Neutrophils # (A) 5.86 10*3/uL (1.80-7.70); Neutrophils % (A) 55.8 %; Platelet Count 233 10*3/uL (140-440); RBC 4.33 10*6/uL (4.10-5.20)
[2025-02-17 04:19] LABS: ALT 11 U/L (4-34); AST 15 U/L (14-36); African American GFR (CKD) >90 (>60 ml/min/1.73 sqM); Albumin 3.3 g/dL (3.5-5.0); Albumin/Globulin Ratio 1.2; Alkaline Phosphatase 69 U/L (38-126); Anion Gap 7 mmol/L; Blood Urea Nitrogen 24 mg/dL (7-17); Calcium 9.6 mg/dL (8.4-10.2); Carbon Dioxide 27 mmol/L (22-30); Chloride 104 mmol/L (98-107); Globulin 2.8 g/dL; Glucose 119 mg/dL (74-99); Non-African American GFR(CKD) >90 (>60 ml/min/1.73 sqM); Potassium 3.7 mmol/L (3.5-5.1); Sodium 138 mmol/L (137-145); Total Bilirubin 1.3 mg/dL (0.2-1.3); Total Protein 6.1 g/dL (6.3-8.2)
[2025-02-17 06:45] LABS: Glucose,Whole Blood 121 mg/dL (70-110)
--- NOTE | 2025-02-17 08:10 | P.PN ---
Progress Note - Text Progress Note Date: 02/17/25 Postoperative day #6 status post anterior cervical decompression with discectomy and fusion C3-7 for severe cervical stenosis with cervical myelopathy The patient is seen and examined at bedside. Her daughter is with her. They feel that they are making some progress in terms of the spasms and the confusion. She has been treated medically and they have held off on the antispasm medicines. This seems to be helping the patient's mentation but the patient is experiencing painful spasms. The patient has started to eat better. She denies new issues in her upper extremities. On exam she is afebrile. Her neck is soft. There is some mild swelling. There is no erythema there is no drainage. She has significant paravertebral spasm over trapezium bilaterally Upper extremities have sustained strength with turntable operator wrist and elbow flexion extension Lower extremities calves thighs soft nontender with sustained dorsiflexion plantarflexion EHL intact CT-scan of the cervical spine is reviewed and the notes in the impression and films are reviewed as well Assessment and plan Postop day #6 status post anterior cervical decompression with discectomy and fusion C3-7 for severe cervical stenosis with cervical myelopathy Altered mentation likely due to medication Severe spasms at the paravertebrals of the cervical spine without apparent neurologic loss The patient surgical site seems to be stable as does the hardware. There is some air around the surgical site which is to be expected postoperatively at this point. I do not see issues with the hardware or evidence of infection at the site at this point. I think it is okay for the patient to try to mobilize to her comfort. The brace is essentially optional for her but I think it could give her some support while she tries to mobilize with a soft collar intact. We could also consider a more rigid collar for further support if she needs. Her mentation is slightly improving with the antispasm medicine since being held. It is going to be difficult to try to manage her pain and spasm without the medication but we will see how she makes progress with gentle therapy and continued mobilization. We do not have any surgical plans to address the site at this point. She should continue with her pain control and mobilization.
[2025-02-17 11:08] LABS: Glucose,Whole Blood 179 mg/dL (70-110)
[2025-02-17] MEDS: LACTATED RINGERS 1,000 ML IV SCH (13:50)
[2025-02-17 16:52] LABS: Glucose,Whole Blood 127 mg/dL (70-110)
[2025-02-17 20:18] LABS: Glucose,Whole Blood 155 mg/dL (70-110)
--- NOTE | 2025-02-17 20:21 | P.PN ---
Progress Note - Text Progress Note Date: 02/17/25 Chief Complaint: Altered mentation This is a 64-year-old patient who follows Dr. Bartolo Garcia. Chronic medical conditions include diabetes, hypertension, osteoarthritis, rheumatoid arthritis, hypothyroid. History of TIA with no deficits. On February 11 patient underwent surgical intervention for severe cervical stenosis C3-C7 cervical myelomalacia cervical myelopathy low breathy upper extremity weakness disc herniation DJD. Patient was discharged on February 12. Patient's 2 daughters at bedside. And other family members. Daughters give history. When patient left she was tolerating a diet. Pain was reasonably well-controlled. She did well when she came home. Pulmonary evening she started complaining increasing pain across the shoulder and spasms. And since then patient has barely eaten. Complaining of significant pain. No fever reported. When I asked the patient's questions she can answer simple questions. But slow to speak. CT scan in the ER on the cervical spine did not show anything new. Dr. Saini ordered the surgery was consulted. February 17: Patient seen by me this morning. Daughter at the bedside. Patient's form awake. Answering questions. Yesterday did discontinue the IV morphine. Naproxen scheduled to 50 3 times daily was placed. Norwood as needed. Baclofen was not continued. Also getting IV fluids. Patient eating much better. IV fluids cut back. PT OT was consulted. Patient seen by surgical team Dr. Saini. Okay with the current medical treatment plan. Soft brace to be used. Disposition based on activity. Active Medications Hydrocodone Bitart/Acetaminophen (Hydrocodone/Apap 5-325mg 1 Each Tab) 1 each PO Q4HR PRN PRN Reason: Moderate Pain (Scale 4 to 6) Last Admin: 02/17/25 05:24 Dose: 1 each Aspirin (Aspirin 81 Mg) 81 mg PO DAILY [facility] Last Admin: 02/17/25 10:36 Dose: 81 mg Atorvastatin Calcium (Atorvastatin 80 Mg Tab) 80 mg PO DAILY [facility] Last Admin: 02/17/25 10:37 Dose: 80 mg Dextrose/Water (Dextrose 50% Syringe 50 Ml) 25 ml IVP PER PROTOCOL PRN; Protocol PRN Reason: Hypoglycemia Dextrose/Water (Dextrose 50% Syringe 50 Ml) 50 ml IVP PER PROTOCOL PRN; Protocol PRN Reason: Hypoglycemia Ezetimibe (Ezetimibe 10 Mg Tab) 10 mg PO DAILY [facility] Last Admin: 02/17/25 10:37 Dose: 10 mg Enoxaparin Sodium (Enoxaparin 40 Mg/0.4 Ml Syringe) 40 mg SQ DAILY [facility] Last Admin: 02/17/25 10:36 Dose: 40 mg Lactated Ringer's (Lactated Ringers) 1,000 mls @ 75 mls/hr IV .[id number] [facility] Last Admin: 02/17/25 13:50 Dose: 75 mls/hr Insulin Human Lispro (Insulin Lispro (Humalog) 100 Unit/Ml 10 Ml Vl) 0 unit SQ AC-TID [facility]; Protocol Last Admin: 02/17/25 17:56 Dose: Not Given Levothyroxine Sodium (Levothyroxine 75 Mcg Tab) 75 mcg PO DAILY@0630 [facility] Last Admin: 02/17/25 06:47 Dose: 75 mcg Metformin HCl (Metformin 500 Mg Tab) 1,000 mg PO AC-BID [facility] Last Admin: 02/17/25 18:21 Dose: 1,000 mg Naloxone HCl (Naloxone 0.4 Mg/Ml 1 Ml Vial) 0.2 mg IV Q2M PRN PRN Reason: Opioid Reversal Naproxen (Naproxen 250 Mg Tab) 250 mg PO TID [facility] Last Admin: 02/17/25 18:21 Dose: 250 mg Pantoprazole Sodium (Pantoprazole 40 Mg Tablet) 40 mg PO DAILY@0730 [facility] Last Admin: 02/17/25 06:57 Dose: 40 mg Social history: Patient smoked less than a pack a day for 10 years more than 30 years ago. 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 Lives with her and grandson. Physical examination: VITAL SIGNS: 97.6, 93, 18, 152 x 76, 92% room air GENERAL: Laying in bed, awake, answering questions EYES: Pupils equal. Conjunctiva rebecca l. HEENT: External appearance of nose and ears normal, oral cavity grossly normal. NECK: JVD unable to assess; masses not palpable. Incision sites noted. HEART: First and second heart sounds are normal; no edema. LUNGS: Respiratory rate normal; clear to auscultation. ABDOMEN: Soft, nontender, liver spleen not palpable, no masses palpable. PSYCH: More awake. Answering questions appropriately. MUSCULOSKELETAL: Evidence of OA in the hands. Moving arms and legs better. Te. NEUROLOGICAL: Cranial nerves grossly intact; no facial asymmetry, moving l limbs much better.. Some hyperreflexia in the legs. INVESTIGATIONS, reviewed in the clinical context: February 17: White count 10.5 globin 12.6 platelets 233 potassium 3.7 creatinine 0.68 February 15, 2025: White count 14.4 hemoglobin 15.1 platelets 278 sodium 138 potassium 4.3 BUN 29 creatinine 0.59 UA: Protein trace glucose 1+ ketones 3+ nitrite negative Chest x-ray film personally reviewed by me-bandaraky atelectasis Cervical spine CT: Edema and gas in the prevertebral retropharyngeal space measuring 1.5 cm consistent with recent surgery. No rim-enhancing fluid collection is seen. Other postsurgical changes. Assessment plan: - Acute metabolic encephalopathy/delirium, secondary to dehydration, combination of Norwood and baclofen,: Much better Patient is not eaten for 4 days. Clinically also dehydrated. Also patient been getting Norwood at home. Along with baclofen. All this could be confounding factors. Hold baclofen. Will also DC morphine for now. - Status post cervical spine surgery on February [address] Saini. Patient is complaining increased pain in the site. CT scan of the spine showed postoperative changes. Dr. Saini seen the patient. Not for any further surgical intervention. - Leukocytosis. This most likely is from volume contraction. Infection entirely cannot be ruled out at the surgical site.. But there is no fever. Orthopedic team following Patient has no respiratory symptoms. No hypoxia. No evidence of UTI - Diabetes mellitus type 2 on oral hypoglycemic For right now stop glyburide. Follow Accu-Cheks with sliding scale. - Hyperlipidemia Lipitor. Zetia. - Hypothyroid Synthroid 75 mcg a day - GERD Omeprazole - Postoperative cervical spine pain. Will stop morphine because of altered mentation. Also hold off baclofen. Naproxen 250, 3 times daily for anti-inflammatory effect. Continue with Norwood - Dehydration causing ketonuria and from decreased oral intake: Much better IV fluids - Chronic rheumatoid arthritis, osteoarthritis - Full code PT OT. Cut back IV fluids. Eating much better. Disposition depending on activity. Discussed with patient and daughter. Past Medical History Past Medical History: CVA/TIA, Diabetes Mellitus, Hypertension, Osteoarthritis (OA), Rheumatoid Arthritis (RA), Thyroid Disorder Additional Past Medical History / Comment(s): hypothyroid, recent adm to [facility] for TIA in January-mostly no deficit, sometimes will forget a word, has never taken BP med, only elevated if "I'm worked up", gets infusions for RA, finished A/B for recent UTI History of Any Multi-Drug Resistant Organisms: MRSA Date of last positivie culture/infection: 12 yrs. ago MDRO Source:: foot & arm Past Surgical History: Appendectomy, Section, Tonsillectomy Additional Past Surgical History / Comment(s): 02/11/25 anterior cervical Past Anesthesia/Blood Transfusion Reactions: No Reported Reaction Past Psychological History: No Psychological Hx Reported Smoking Status: Former smoker Past Alcohol Use History: None Reported Additional Past Alcohol Use History / Comment(s): quit smoking >30 yrs. ago, off & on for 10 yrs. <ppd Past Drug Use History: None Reported
[2025-02-17 22:02] VITALS: RESP 16
[2025-02-18 02:27] VITALS: PULSE 83
[2025-02-18 06:21] LABS: Glucose,Whole Blood 115 mg/dL (70-110)
[2025-02-18 07:13] VITALS: BP 176/79; TEMP 97.7
--- NOTE | 2025-02-18 08:25 | P.CNNES ---
History of Present Illness Consult date: 02/17/25 Requesting physician: Navjot Hagan Reason for Consult: Altered mental status History of Present Illness: Patient is a 64-year-old right-handed female came to the hospital by ambulance, 2 days ago, 02/15/2025 at 8:09 PM.for altered mental status. Patient was recently admitted to the hospital and was seen by myself on 01/08/2025 for possible TIA versus transient global amnesia. MRI of the brain was negative for any acute stroke, however she was found to have severe cervical spinal stenosis. EEG was normal. Patient was discharged on aspirin 81 mg daily. Hemoglobin A1c 10.3. Patient was discharged home to follow-up with orthopedic surgery to schedule cervical decompression surgery as an outpatient basis. Patient underwent cervical decompression on 02/11/2025. She was discharged home the following day on 02/12/2025. Subsequently patient has been getting pain medication and developed confusion and was brought to the hospital. Patient denies any focal symptoms this time. Patient believes that her mental status change was likely due to "reaction to medication". She could not function, coul d not get out of bed or sit up. At present patient having significant spasms in the back of her head, right shoulder to the left shoulder and around her neck. As per EMS flowsheet, when they arrived, patient was unconscious, breathing. Patient was laying in the bed breathing adequately. Family mentioned that patient had anterior cervical decompression fusion C3-4, C4-5, C5-6, C6-7 on 02/11/2025. She came home on 02/12/2025. Family mentioned that since being home, the patient has not eaten anything, and has not been out of her bed in several days. Patient has been prescribed Mosier following the surgery that she has been taking when the gives it to her as prescribed. Patient had sudden change in mental status, the last known well was 7:15 PM. Patient suddenly quit talking. When she did say something, it was brief and confused. The patient was not responding to EMS. She was groaning in pain when touched. Pupils were equal at 3 mm, slow to react to light. The patient did not have eye movements that followed commands. She would not answer questions. The patient would move her toes when told to do so. The patient would move both arms with purpose but would not move them to follow commands. Patient's vitals at the scene was blood pressure 162/113, pulse rate 131, saturation 94% respiration 16, temperature 37.4 and blood glucose 173. Patient's blood tests showed WBC 14.48, hemoglobin 15.1, normal platelets. Normal PT PTT, normal CMP. UA shows no infection. Chest x-ray showed streaky atelectasis right lung base. Pneumonia is within the differential. Mild increased pulmonary vascular markings. Correlate for volume overload. CT of the cervical spine showed edema and gas in the prevertebral/retropharyngeal space measuring 1.5 cm thick consistent with recent surgery. No rim-enhancing fluid collection is seen. Correlate with timing to surgery to differentiate between normal postoperative gas versus abscess. Surgical changes status post discectomy and fusion with plate and screws extending from C3-C7. The bone graft plugs and hardware are in standard position. Patient had a CT head performed yesterday, which revealed no acute intracranial process. Review of Systems All pertinent positive and negative review of systems pressure in the HPI, otherwise unremarkable. Past Medical History Past Medical History: CVA/TIA, Diabetes Mellitus, Hypertension, Osteoarthritis (OA), Rheumatoid Arthritis (RA), Thyroid Disorder Additional Past Medical History / Comment(s): hypothyroid, recent adm to [facility] for TIA in January-mostly no deficit, sometimes will forget a word, has never taken BP med, only elevated if "I'm worked up", gets infusions for RA, finished A/B for recent UTI History of Any Multi-Drug Resistant Organisms: MRSA Date of last positivie culture/infection: 12 yrs. ago MDRO Source:: foot & arm Past Surgical History: Appendectomy, Section, Tonsillectomy Additional Past Surgical History / Comment(s): 02/11/25 anterior cervical Past Anesthesia/Blood Transfusion Reactions: No Reported Reaction Past Psychological History: No Psychological Hx Reported Smoking Status: Former smoker Past Alcohol Use History: None Reported Additional Past Alcohol Use History / Comment(s): quit smoking >30 yrs. ago, off & on for 10 yrs. <ppd Past Drug Use History: None Reported - Past Family History Mother Family Medical History: No Reported History Medications and Allergies Home Medications Medication Instructions Recorded Confirmed Type Levothyroxine Sodium [Synthroid] 75 mcg PO DAILY 08/23/21 02/16/25 History metFORMIN HCL [Glucophage] 1,000 mg PO BID 10/19/21 04/14/25 History Atorvastatin [Lipitor] 80 mg PO DAILY 01/06/25 02/16/25 History Ezetimibe [Zetia] 10 mg PO DAILY 01/06/25 02/16/25 History Naproxen [Naprosyn] 500 mg PO BID PRN 01/06/25 02/16/25 History glyBURIDE [Diabeta] 20 mg PO DAILY 01/06/25 02/16/25 History Aspirin 81 mg PO DAILY #30 tab 01/08/25 02/16/25 Rx Magnesium 400 mg PO DAILY 02/10/25 02/16/25 History Semaglutide [Ozempic] 0.25 mg SQ MO 02/10/25 02/16/25 History Baclofen 10 mg PO TID PRN #60 tab 02/12/25 02/16/25 Rx HYDROcodone/APAP 5-325MG [Mosier 5] 1 tab PO Q4HR PRN 02/16/25 02/16/25 History Omeprazole 40 mg PO DAILY 02/16/25 02/16/25 History Allergies Allergy/AdvReac Type Severity Reaction Status Date / Time diazepam [From Valium] AdvReac Vomiting Verified 02/16/25 08:50 Physical Examination - Vital Signs Vital Signs: Vital Signs Temp Pulse Resp BP Pulse Ox 02/17/25 13:27 97.6 F 93 18 152/76 92 L 02/17/25 08:26 97.4 F L 80 19 146/79 93 L 02/17/25 04:46 97.5 F L 80 15 162/86 100 02/16/25 19:26 97.8 F 100 17 157/85 92 L Intake and Output 02/17/25 02/17/25 02/17/25 06:59 14:59 22:59 Intake Total 1650 Balance 1650 Intake: Oral 1650 Other: # Voids 3 Patient is an elderly female, very pleasant, in no acute distress. However she is getting intermittent spasms in the neck which is very painful it appears. Patient is alert awake oriented to time place and person. Patient knows it is February 2025 and that she is in [facility] in [place]. Speech and lang uage functions are normal. Patient can name and repeat very well. No aphasia or dysarthria. Attention, concentration and fund of knowledge is adequate. On cranial nerve examination, pupils are equal, round and reacting to light, visual gray are full on confrontation, with no neglect on double simultaneous stimulation. Extraocular muscles are intact with no nystagmus. Face is symmetric, tongue protrudes to the midline. Palatal elevation and sensation normal, hearing appears normal and shoulder shrug not checked because of neck surgery. Her facial sensation normal. On muscle strength testing, there is no pronator drift and the strength is normal in arms and legs distally and proximally. Deltoids and biceps not checked to the maximum strength because of recent neck surgery. 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 Deep tendon reflexes are asymmetric (right/left) biceps 2/1, brachioradialis 1+/1, knees 2/2 and plantars are upgoing bilaterally. Sensory to touch is equal with no neglect on double simultaneous stimulation. Cerebellar function showed no ataxia for [id number] testing. No dysdiadochokinesia. No ataxia for [id number] testing on either side. Tone and bulk of muscles normal. Gait deferred.. On general examination, there is no carotid bruit or murmur, S1-S2 audible. Chest is clear on consultation. Abdomen is soft nontender. No organomegaly, bowel sounds present. Peripheral pulses are present. No peripheral edema. Results - Laboratory Findings CBC and BMP: 02/17/25 03:38 02/17/25 03:38 Abnormal Lab Findings: Abnormal Labs 02/15/25 02/15/25 02/15/25 20:17 20:31 20:31 WBC 14.48 H RBC 5.21 H Hgb 15.1 H Neutrophils # 10.43 H Eosinophils # APTT 19.5 L BUN Glucose POC Glucose (mg/dL) 158 H Total Bilirubin Total Protein Albumin Ur Specific [place] Urine Protein Urine Glucose (UA) Urine Ketones Ur Leukocyte Esterase Urine WBC Urine Mucus 02/15/25 02/16/25 02/16/25 20:31 10:59 11:11 WBC RBC Hgb Neutrophils # Eosinophils # APTT BUN 29 H Glucose 172 H POC Glucose (mg/dL) 172 H Total Bilirubin 1.6 H Total Protein Albumin Ur Specific [place] 1.042 H Urine Protein Trace H Urine Glucose (UA) 1+ H Urine Ketones 3+ H Ur Leukocyte Esterase Small H Urine WBC 7 H Urine Mucus Rare H 04/02/16/25 02/16/25 16:56 20:25 20:56 WBC 12.46 H RBC Hgb Neutrophils # 8.63 H Eosinophils # APTT BUN Glucose POC Glucose (mg/dL) 140 H 141 H Total Bilirubin Total Protein Albumin Ur Specific [place] Urine Protein Urine Glucose (UA) Urine Ketones Ur Leukocyte Esterase Urine WBC Urine Mucus 02/17/25 02/17/25 02/17/25 03:38 03:38 06:44 WBC 10.50 H RBC Hgb Neutrophils # Eosinophils # 0.38 H APTT BUN 24 H Glucose 119 H POC Glucose (mg/dL) 121 H Total Bilirubin Total Protein 6.1 L Albumin 3.3 L Ur Specific [place] Urine Protein Urine Glucose (UA) Urine Ketones Ur Leukocyte Esterase Urine WBC Urine Mucus 02/17/25 11:04 WBC RBC Hgb Neutrophils # Eosinophils # APTT BUN Glucose POC Glucose (mg/dL) 179 H Total Bilirubin Total Protein Albumin Ur Specific [place] Urine Protein Urine Glucose (UA) Urine Ketones Ur Leukocyte Esterase Urine WBC Urine Mucus Assessment and Plan Assessment: * Altered mental status, likely due to metabolic encephalopathy. This is likely related to taking too much pain medications for recent neck surgery. * Status post C3 4, C4 5, C5 6 and C6 7 anterior cervical decompression and fusion, performed on 02/11/2025 * Neck and bilateral shoulder pain post surgery * Back spasms due to above * History of cervical spinal stenosis with some myelomalacia. * Diabetes * Hypertension * Hyperlipidemia * Hypothyroidism * Vitamin B12 deficiency * Rheumatoid arthritis Plan: * Limit amount of opiates/narcotics/sedatives, if possible. * Patient on naproxen 250 mg 3 times a day. * Consider Flexeril for neck spasms. * We will start Neurontin 200 mg twice a day for pain control. * Continue aspirin 81 mg and Lipitor 80 mg. * Management of diabetes as per IM. * DVT prophylaxis: Lovenox 40 mg subcu daily. * Neurology will follow clinically.
[2025-02-18] MEDS: GABAPENTIN 100 MG CAP PO SCH (09:35)
[2025-02-18 11:07] LABS: Glucose,Whole Blood 145 mg/dL (70-110)
[2025-02-18] MEDS: LOSARTAN 25 MG TAB PO STA (11:57)
--- NOTE | 2025-02-20 20:03 | P.DS ---
Providers Date of admission: 02/16/25 19:30 Expected date of discharge: 02/18/25 Attending physician: Navjot Hagan Consults: 02/16/25 00:20 Consult Physician Routine Consulting Provider: Chicho Saini Consult Reason/Comments: post op pain Do you want consulting provider notified?: Yes, Notify in am 02/16/25 12:08 Consult Physician Routine Consulting Provider: Kalin Garcia Consult Reason/Comments: altered mental status Do you want consulting provider notified?: Yes Primary care physician: [facility] Course: Chief Complaint: Altered mentation This is a 64-year-old patient who follows Dr. Bartolo Garcia. Chronic medical conditions include diabetes, hypertension, osteoarthritis, rheumatoid arthritis, hypothyroid. History of TIA with no deficits. On February 11 patient underwent surgical intervention for severe cervical stenosis C3-C7 cervical myelomalacia cervical myelopathy low breathy upper extremity weakness disc herniation DJD. Patient was discharged on February 12. Patient's 2 daughters at bedside. And other family members. Daughters give history. When patient left she was tolerating a diet. Pain was reasonably well-controlled. She did well when she came home. Pulmonary evening she started complaining increasing pain across the shoulder and spasms. And since then patient has barely eaten. Complaining of significant pain. No fever reported. When I asked the patient's questions she can answer simple questions. But slow to speak. CT scan in the ER on the cervical spine did not show anything new. Gerber Saini ordered the surgery was consulted. February 17: Patient seen by me this morning. Daughter at the bedside. Patient's form awake. Answering questions. Yesterday did discontinue the IV morphine. Naproxen scheduled to 50 3 times daily was placed. Townley as needed. Baclofen was not continued. Also getting IV fluids. Patient eating much better. IV fluids cut back. PT OT was consulted. Patient seen by surgical team Dr. Saini. Okay with the current medical treatment plan. Soft brace to be used. Disposition based on activity. February 18: Patient doing much better. Communicating well. Eating fair. Surgical instructions per Dr. Saini. Pain much better controlled. Did ambulate. Follow-up with surgery. Care was discussed with the patient and daughter at the bedside. Also use heating pad as needed. Did walk about 70 feet with rolling walker Discussion and discharge planning more than 35 minutes Social history: Patient smoked less than a pack a day for 10 years more than 30 years ago. 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 Lives with her and grandson. Physical examination: VITAL SIGNS: 97.7, 83, 16, 95% room air GENERAL: More comfortable EYES: Pupils equal. Conjunctiva rebecca l. HEENT: External appearance of nose and ears normal, oral cavity grossly normal. NECK: JVD unable to assess; masses not palpable. Incision sites noted. HEART: First and second heart sounds are normal; no edema. LUNGS: Respiratory rate normal; clear to auscultation. ABDOMEN: Soft, nontender, liver spleen not palpable, no masses palpable. PSYCH: More awake. Answering questions appropriately. MUSCULOSKELETAL: Evidence of OA in the hands. Moving arms and legs better. Te. NEUROLOGICAL: Cranial nerves grossly intact; no facial asymmetry, did ambulate in the hallway INVESTIGATIONS, reviewed in the clinical context: February 17: White count 10.5 globin 12.6 platelets 233 potassium 3.7 creatinine 0.68 February 15, 2025: White count 14.4 hemoglobin 15.1 platelets 278 sodium 138 potassium 4.3 BUN 29 creatinine 0.59 UA: Protein trace glucose 1+ ketones 3+ nitrite negative Chest x-ray film personally reviewed by -casey atelectasis Cervical spine CT: Edema and gas in the prevertebral retropharyngeal space measuring 1.5 cm consistent with recent surgery. No rim-enhancing fluid collection is seen. Other postsurgical changes. Assessment plan: - Acute metabolic encephalopathy/delirium, secondary to dehydration, combination of Townley and baclofen,: Resolved r Patient is not eaten for 4 days. Clinically also dehydrated. Also patient been getting Townley at home. Along with baclofen. All this could be confounding factors. Baclofen discontinued. Use Townley as needed. - Status post cervical spine surgery on February [address] Saini. Patient is complaining increased pain in the site. CT scan of the spine showed postoperative changes. Dr. Saini seen the patient. Not for any further surgical intervention. - Leukocytosis. This most likely is from volume contraction. Infection entirely cannot be ruled out at the surgical site.. But there is no fever. Orthopedic team following: Improved Patient has no respiratory symptoms. No hypoxia. No evidence of UTI - Diabetes mellitus type 2 on oral hypoglycemic For right now stop glyburide. Follow Accu-Cheks with sliding scale. - Hyperlipidemia Lipitor. Zetia. - Hypothyroid Synthroid 75 mcg a day - GERD Omeprazole - Postoperative cervical spine pain.: Better Will stop morphine because of altered mentation. Also hold off baclofen. Naproxen 250, 3 times daily for anti-inflammatory effect. Continue with Townley - Dehydration causing ketonuria and from decreased oral intake: Much better IV fluids - Chronic rheumatoid arthritis, osteoarthritis - Full code Disposition: Home Past Medical History Past Medical History: CVA/TIA, Diabetes Mellitus, Hypertension, Osteoarthritis (OA), Rheumatoid Arthritis (RA), Thyroid Disorder Additional Past Medical History / Comment(s): hypothyroid, recent adm to [facility] for TIA in January-mostly no deficit, sometimes will forget a word, has never taken BP med, only elevated if "I'm worked up", gets infusions for RA, finished A/B for recent UTI History of Any Multi-Drug Resistant Organisms: MRSA Date of last positivie culture/infection: 12 yrs. ago MDRO Source:: foot & arm Past Surgical History: Appendectomy, Section, Tonsillectomy Additional Past Surgical History / Comment(s): 02/11/25 anterior cervical Past Anesthesia/Blood Transfusion Reactions: No Reported Reaction Past Psychological History: No Psychological Hx Reported Smoking Status: Former smoker Past Alcohol Use History: None Reported Additional Past Alcohol Use History / Comment(s): quit smoking >30 yrs. ago, off & on for 10 yrs. <ppd Past Drug Use History: None Reported Plan - Discharge Summary Discharge Rx Participant: Yes New Discharge Prescriptions: New Naproxen [Naprosyn] 250 mg PO TID #60 tab Gabapentin [Neurontin] 200 mg PO TID #90 cap Continue metFORMIN HCL [Glucophage] 1,000 mg PO BID Ezetimibe [Zetia] 10 mg PO DAILY Atorvastatin [Lipitor] 80 mg PO DAILY Semaglutide [Ozempic] 0.25 mg SQ MO Levothyroxine Sodium [Synthroid] 75 mcg PO DAILY glyBURIDE [Diabeta] 20 mg PO DAILY Aspirin 81 mg PO DAILY #30 tab Omeprazole 40 mg PO DAILY HYDROcodone/APAP 5-325MG [Townley 5-325] 1 tab PO Q4HR PRN PRN Reason: Pain Changed Baclofen 5 mg PO HS PRN #1 tab PRN Reason: Spasms Discontinued Magnesium 400 mg PO DAILY Naproxen [Naprosyn] 500 mg PO BID PRN PRN Reason: Pain Discharge Medication List Levothyroxine Sodium [Synthroid] 75 mcg PO DAILY 08/23/21 [History] metFORMIN HCL [Glucophage] 1,000 mg PO BID 08/23/21 [History] Atorvastatin [Lipitor] 80 mg PO DAILY 01/06/25 [History] Ezetimibe [Zetia] 10 mg PO DAILY 01/06/25 [History] glyBURIDE [Diabeta] 20 mg PO DAILY 01/06/25 [History] Aspirin 81 mg PO DAILY #30 tab 01/08/25 [Rx] Semaglutide [Ozempic] 0.25 mg SQ MO 02/10/25 [History] HYDROcodone/APAP 5-325MG [Townley 5-325] 1 tab PO Q4HR PRN 02/16/25 [History] Omeprazole 40 mg PO DAILY 02/16/25 [History] Baclofen 5 mg PO HS PRN #1 tab 02/18/25 [Rx] Gabapentin [Neurontin] 200 mg PO TID #90 cap 02/18/25 [Rx] Naproxen [Naprosyn] 250 mg PO TID #60 tab 02/18/25 [Rx] Follow up Appointment(s)/Referral(s): Zach Neil PAC [PHYSICIAN [employer]] - 03/09/25 2:00 pm () Nick Garcia MD [Primary Care Provider] - 1-2 days (please call the office to schedule a follow up appointment) Activity/Diet/Wound Care/Special Instructions: Patient requires a walker for unsteady gait due to osteoarthritis and rheumatoid arthritis. 1. Patient may shower without a dressing intact. 2. Patient may wear soft cervical collar for comfort support as needed. 3. Patient should refrain from driving until at least after their first follow- up appointment in the office. 4. Patient should avoid excessive cervical flexion, extension, and side bending; avoid overhead lifting; no lifting greater than 10 pounds 5. Take medications as prescribed 6. Patient should avoid anti-inflammatory medications over the next 6 weeks postoperatively 7. Do not soak in tub Discharge Disposition: HOME SELF-CARE
== END 2025-02-18 14:05 | disposition home or self-care (01) | DRG 91 ==
LOC: EC 20:09 → 4SSUR 02-16 00:21 → OBSVTOIN 02-16 19:30
PROVIDERS: ADMIT Hospitalist; ATTEND Hospitalist
DX: G92.8 Other toxic encephalopathy (principal); G93.41 Metabolic encephalopathy; G95.89 Other specified diseases of spinal cord; E11.9 Type 2 diabetes mellitus without complications; M06.9 Rheumatoid arthritis, unspecified; E03.9 Hypothyroidism, unspecified; I10 Essential (primary) hypertension; M54.12 Radiculopathy, cervical region; M48.02 Spinal stenosis, cervical region; M50.30 Other cervical disc degeneration, unspecified cervical region; E78.5 Hyperlipidemia, unspecified; E53.8 Deficiency of other specified B group vitamins; K21.9 Gastro-esophageal reflux disease without esophagitis; E86.0 Dehydration; T40.2X5A Adverse effect of other opioids, initial encounter; Z79.82 Long term (current) use of aspirin; Z79.84 Long term (current) use of oral hypoglycemic drugs; Z79.890 Hormone replacement therapy; Z87.891 Personal history of nicotine dependence; Z88.8 Allergy status to other drugs, medicaments and biological substances; Z79.899 Other long term (current) drug therapy; Z86.73 Personal history of transient ischemic attack (TIA), and cerebral infarction without residual deficits; Z98.1 Arthrodesis status
CPT/HCPCS: 36415; 70450; 71045; 72126; 80053; 81001; 83605; 85025; 85610; 85730; 87040; 93005; 96361; 96365; 96375; 99285